=== PATIENT | female | born 1945 | race Caucasian/White ===

== ENCOUNTER 2017-01-29 08:41 | Inpatient (IN) ==
[2017-01-29] MEDS ORDERED: ACETAMINOPHEN 325 MG TABLET PO PRN (09:02)
--- NOTE | 2017-01-29 09:16 | Family Practice History&Phys ---
Assessment and Plan (1) Colon distention Status: Acute Assessment and plan: 01/29/2017: Patient be admitted to my services. GI and surgery will be consulted. (2) Pneumatosis coli Status: Acute Assessment and plan: 01/29/2017: IV antibiotics have been ordered. Surgery is consulted. History of Present Illness Chief complaint: Abdominal pain and bloating History of present illness: Ms. Varghese is a 71 year old female Patient is a 71-year-old white female presented my office on 01/28/2017 with persistent abdominal pain and bloating of months duration. Patient denied any blood or mucus in her stool. She has not been having any fever or chills. She is diffusely distended and I advised hospitalization for CT and GI consultation. She was reluctant come the hospital 1 to try to do as an outpatient. She has a CT of the abdomen today which revealed have a markedly dilated colon with small area of pneumatosis coli. There is also a narrowed area in her distal sigmoid concerning for a apple core lesion. Patient was admitted for further evaluation. She denies any fever or chills today as well. Home Medications Medication Instructions Recorded Confirmed Type Aspirin [Ecotrin] 81 mg PO DAILY 02/06/16 04/28/16 History Glimepiride [Amaryl] 4 mg PO BID 02/06/16 04/28/16 History Ibuprofen [Advil] 200 mg PO BEDTIME PRN 02/06/16 04/28/16 History Ibuprofen/Diphenhydramine HCl 1 capsule PO BEDTIME PRN 02/06/16 04/28/16 History [Advil PM Cap] [place]-3S/Dha/Epa/Fish Oil [Fish 1 each PO BID 02/06/16 04/28/16 History Oil 1,200 mg Softgel] Timolol Maleate [Timolol 0.5% Oph 1 drop BOTH EYES BID 02/06/16 04/28/16 History Soln] Valsartan [Diovan] 160 mg PO DAILY 02/06/16 04/28/16 History amLODIPine [Norvasc] 5 mg PO DAILY 02/06/16 04/28/16 History hydroCHLOROthiazide 25 mg PO DAILY PRN 02/06/16 04/28/16 History [Hydrochlorothiazide] metFORMIN [Glucophage] 1,000 mg PO BID W/MEALS 02/06/16 04/28/16 History Cyanocobalamin (Vitamin B-12) 1,000 mcg PO DAILY 04/28/16 04/28/16 History [Vitamin B-12] Allergies Allergy/AdvReac Type Severity Reaction Status Date / Time povidone-iodine Allergy Intermediate BLISTER Verified 03/22/16 06:17 [From Betadine] soap [From Betadine] Allergy Intermediate BLISTER Verified 03/22/16 06:17 - Constitutional Constitutional: Present: fatigue, weakness. Absent: chills, fever(s) - EENT Eyes: Absent: blurry vision, loss of vision Ears: Absent: decreased hearing, ear pain Nose, mouth and throat: Absent: hoarseness, nasal congestion, sinus pressure, sore throat - Cardiovascular Cardiovascular: Absent: chest pain at rest, dyspnea - Respiratory Respiratory: Absent: cough, dyspnea, dyspnea on exertion - Gastrointestinal Gastrointestinal: Present: abdominal pain, bloating, constipation, cramping. Absent: diarrhea, hematemesis, hematochezia, melena, nausea, vomiting - Genitourinary Genitourinary: Absent: difficulty urinating, dysuria, urinary frequency - Musculoskeletal Musculoskeletal: Absent: arthralgias, back pain - Neurological Neurological: Absent: confusion, focal weakness, numbness, paresthesias - Psychiatric Psychiatric: Absent: anxiety, confusion, depression - Endocrine Endocrine: Present: fatigue. 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 Scott) Endocrine: History of: Diabetes Mellitus (NIDDM) Respiratory: No history of: Pneumonia (No Pneum Vac), Respiratory Problems (Flu Vac Dec 2015) Genitourinary: History of: Bladder Problem (Leaky Bladder; Told in 1995 She had Prolapse Bladder) Gastrointestinal: History of: GERD Musculoskeletal: History of: Musculoskeletal Problems (Arthritis) Other: History of: Anesthesia Reactions (Nausea) No history of: Cancer - Surgical History HEENT Surgeries: Patient denies: Eye Surgery (02/07/[address] Dejesus; Sched for Rt ) Abdominal Surgeries: Surgical HX of: Appendectomy Patient denies: Colonoscopy Reproductive Surgeries: Surgical HX of;: Hysterectomy (Partial), Tubal Ligation (1972) Orthopedic Surgeries: Surgical HX of;: Orthopedic Surgery (CTR LT; TFR RT; CTR RT) - Family History Family History: noncontributory - Social History Smoking Status: Never smoker Exam - Constitutional Exam: General: Objective patient is a well-developed white female who is able give good history. HEENT: Pupils equal and reactive to light. Patent nares and airway Neck: No meningismus, adenopathy, thyromegaly. There are no auscultated carotid bruits. Cardiovascular: Regular rhythm. No murmurs or gallops Chest: Clear to auscultation without rales rhonchi wheezes. Abdomen: Patient found to have diffuse abdominal distention. She has diffuse direct tenderness scattered across her entire abdomen. Bowel sounds were appreciated. She did have tympany to percussion. There is no palpable hepatosplenomegaly, masses or aortic enlargement. Neuro: Cranial nerves intact and DTRs and strength symmetric in all extremities. Dermatologic: No evidence of abnormal lesions or masses. Musculoskeletal: There is no joint swelling or tenderness or deformity. Extremities: There is no calf swelling or tenderness. Results - Diagnostic Findings Procedure: CT Abdomen and Pelvis: report reviewed by me (CT reveals diffuse colonic distention with some pneumatosis coli.)
[2017-01-29] MEDS ORDERED: ENOXAPARIN 40 MG/0.4 ML SYRINGE SUBCUT SCH (09:30)
[2017-01-29] MEDS ORDERED: INFLUENZA VIRUS VACCINE 0.5 ML SYRINGE IM ONE (10:09)
--- NOTE | 2017-01-29 10:16 | XRay Report ---
History is preop respiratory screening The heart is normal in size Small left upper lobe granuloma again seen. No congestive failure or confluent infiltrates seen. Impression: No acute pathology seen PROCEDURE INTERPRETED AT [facility] DEPARTMENT OF RADIOLOGY Final Report Signed by: Dr. Tiffany Banerjee
--- NOTE | 2017-01-29 10:36 | Order Completion Report ---
See report scanned to EMR
--- NOTE | 2017-01-29 10:47 | Gastrointestinal Consult Note ---
<Anabell Oleary - Last Filed: 01/29/17 10:39> Assessment and Plan (1) Abdominal pain Status: Acute Assessment and plan: 01/29-several month history of random episodes of abdominal pain with associated bloating and nausea with history of constipation. 2 week history of worsening pain more chronic in nature. No overt bleeding. Afebrile. No prior endoscopy in the past. CT of abdomen findings this morning noted as below. Consideration for colonoscopy to further evaluate. Plan an addendum to followed by Dr. Mai. Current Visit: Yes History of Present Illness Chief complaint: Abdominal pain History of present illness: Ms. Varghese is a 71 year old female who was a direct admit to the hospital from Dr. Villalpando office today. Patient has a prior history of hypertension, diabetes mellitus, GERD, and OA. Patient states that several months ago she began having some abdominal distention and discomfort. She states that the pain was very random in nature however seem to mostly be precipitated by eating and meals. Patient states that she did have some generalized abdominal pain and cramping with associated nausea. She cannot recall anything that improves the pain when it would occur. Patient states that this continued to occur until approximately 2 weeks ago when the pain became more severe. She states the pain is now more consistent in nature, at times moves around her abdomen to different areas, and continues to be associated with nausea without any vomiting. She denies any changes in her bowels with no melena or hematochezia however states that she does have chronic constipation issues. She denies any associated weight loss, fever or chills. She denies any upper GI symptoms including dysphagia, dyspepsia, however states that she has noticed a change in her GERD as of lately. She does take an occasional Advil at night for pain. She has never had upper or lower endoscopy in the past. Patient was seen in the clinic this morning, she had a CT of the abdomen with contrast ordered. Findings were negative for significant colon distention with fecal material and wall thickening and minimal pneumatosis coli with minimal ascites. Also made to transition zone in the sigmoid colon. 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 No labs are available at this time. Home Medications Medication Instructions Recorded Confirmed Type Aspirin [Ecotrin] 81 mg PO DAILY 02/06/16 04/28/16 History Glimepiride [Amaryl] 4 mg PO BID 02/06/16 04/28/16 History Ibuprofen [Advil] 200 mg PO BEDTIME PRN 02/06/16 04/28/16 History Ibuprofen/Diphenhydramine HCl 1 capsule PO BEDTIME PRN 02/06/16 04/28/16 History [Advil PM Cap] [place]-3S/Dha/Epa/Fish Oil [Fish 1 each PO BID 02/06/16 04/28/16 History Oil 1,200 mg Softgel] Timolol Maleate [Timolol 0.5% Oph 1 drop BOTH EYES BID 02/06/16 04/28/16 History Soln] Valsartan [Diovan] 160 mg PO DAILY 02/06/16 04/28/16 History amLODIPine [Norvasc] 5 mg PO DAILY 02/06/16 04/28/16 History hydroCHLOROthiazide 25 mg PO DAILY PRN 02/06/16 04/28/16 History [Hydrochlorothiazide] metFORMIN [Glucophage] 1,000 mg PO BID W/MEALS 02/06/16 04/28/16 History Cyanocobalamin (Vitamin B-12) 1,000 mcg PO DAILY 04/28/16 04/28/16 History [Vitamin B-12] Allergies Allergy/AdvReac Type Severity Reaction Status Date / Time povidone-iodine Allergy Intermediate BLISTER Verified 03/22/16 06:17 [From Betadine] soap [From Betadine] Allergy Intermediate BLISTER Verified 03/22/16 06:17 Medical,Surgical,& Family Hx - Medical History Cardio: History of: Hypertension Neurology: No history of: Seizures HEENT: History of: 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 Scott) Endocrine: History of: Diabetes Mellitus (NIDDM) Respiratory: No history of: Pneumonia (No Pneum Vac), Respiratory Problems (Flu Vac Dec 2015) Genitourinary: History of: Bladder Problem (Leaky Bladder; Told in 1995 She had Prolapse Bladder) Gastrointestinal: History of: GERD Musculoskeletal: History of: Musculoskeletal Problems (Arthritis) Other: History of: Anesthesia Reactions (Nausea) No history of: Cancer - Surgical History HEENT Surgeries: Patient denies: Eye Surgery (10/18/[address] Dejesus; Sched for Rt ) Abdominal Surgeries: Surgical HX of: Appendectomy Patient denies: Colonoscopy Reproductive Surgeries: Surgical HX of;: Hysterectomy (Partial), Tubal Ligation (1972) Orthopedic Surgeries: Surgical HX of;: Orthopedic Surgery (CTR LT; TFR RT; CTR RT) - Social History Smoking Status: Never smoker Frequency of Alcohol Use: None Type of Drug Use: None 12 point system: reviewed and no additional remarkable complaints except as stated - Constitutional Constitutional: Present: as per HPI - EENT Eyes: Present: as per HPI Ears: Present: as per HPI Nose, mouth and throat: Present: as per HPI - Cardiovascular Cardiovascular: Present: as per HPI - Respiratory Respiratory: Present: as per HPI - Gastrointestinal Gastrointestinal: Present: as per HPI, abdominal pain, bloating, constipation, heartburn, nausea - Genitourinary Genitourinary: Present: as per HPI - Musculoskeletal Musculoskeletal: Present: as per HPI - Neurological Neurological: Present: as per HPI - Psychiatric Psychiatric: Present: as per HPI - Endocrine Endocrine: Present: as per HPI - Hematologic/Lymphatic Hematologic/Lymphatic: Present: as per HPI Exam - Constitutional Vitals: Period Temp Pulse Resp BP Sys/Cabrales Pulse Ox Last 24 Hr 97.3 F 80 16 156/74 96 General appearance: normal weight, no acute distress - Head Head exam: Present: normal inspection, normocephalic - Eye Eye exam: Present: other (Lids and conjunctivae are unremarkable). Absent: scleral icterus - ENT ENT exam: Present: normal exam, normal oropharynx - Neck Neck exam: Present: normal inspection - Respiratory Respiratory exam: Present: clear to auscultation bilaterally. Absent: rales, rhonchi, wheezes - Cardiovascular Cardiovascular exam: Present: regular rate and rhythm. Absent: diastolic murmur , JVD, systolic murmur - GI/Abdominal GI/Abdominal exam: Present: normal bowel sounds, soft. Absent: ascites, distended, mass, organomegaly, tenderness - Extremities Exam Extremities exam: Present: normal inspection, full ROM - Back Exam Back exam: Present: normal inspection - Neurological Exam Neurological exam: Present: alert, oriented X3 - Psychiatric Psychiatric exam: Present: normal affect, normal mood - Skin Skin exam: Present: normal color, warm, dry Results - Diagnostic Findings Procedure: CT Abdomen and Pelvis: report reviewed by me Quality Measures - Stroke Symptom Onset Unknown: No <Harjinder Mai - Last Filed: 01/29/17 12:54> History of Present Illness History of present illness: Ms. Varghese is a 71 year old female Exam - Constitutional Vitals: Period Temp Pulse Resp BP Sys/Cabrales Pulse Ox Last 24 Hr 97.3 F 80 16 156/74 96 Results - Labs CBC & BMP: 01/29/17 10:53 01/29/17 10:49
[2017-01-29 11:17] LABS: Basophils % 0.3 % (0.0-0.8); Eosinophils % 0.1 % (0.00-10.9); Hematocrit 35.6 VOL% (35.7-47.0); Hemoglobin 12.1 GM/DL (12.0-16.0); Immature Granulocytes % 0.5 %; Immature Granulocytes Absolute 0.06 #; Lymphocytes # 1.5 10*3/uL (1.4-4.0); Lymphocytes % 12.2 % (21.3-54.2); Mean Corpuscular Hemoglobin 28 PG (27-34); Mean Corpuscular Volume 83.4 FL (87-102); Mean Platelet Volume 10.5 FL (9.6-12.0); Monocytes # 0.4 10*3/uL (0.11-0.8); Monocytes % 3.2 % (1.7-12.7); Neutrophils # 10.3 10*3/uL (1.4-7.4); Neutrophils % 83.7 % (38.7-73.9); Platelet Count 536 T/CUMM (130-400); Red Blood Count 4.27 MC/CUMM (3.8-5.5); White Blood Count 12.3 T/CUMM (4-12)
[2017-01-29 11:42] LABS: Alanine Aminotransferase 14 U/L (13-56); Albumin 3.2 G/DL (3.4-5.0); Alkaline Phosphatase 150 U/L (45-117); Aspartate Amino Transferase 10 U/L (0-37); Bilirubin,Total < 0.39 MG/DL (0.2-1.0); Blood Urea Nitrogen 19 MG/DL (7-18); Calcium 9.5 MG/DL (8.5-10.1); Glucose 308 MG/DL (74-106); Osmolality,Calculated 281.2 MOS/KG (273-304); Potassium 3.8 MMOL/L (3.5-5.1); Sodium 134 MMOL/L (136-145); Total Protein 7.2 G/DL (6.4-8.3)
--- NOTE | 2017-01-29 11:51 | General Surgery Consult Note ---
Assessment and Plan (1) Colon distention Status: Acute Assessment and plan: Patient is colonic distention with transition point noted in the sigmoid; certainly a neoplasm is of concern while other diagnoses are possible including adhesions or infectious process. She has no evidence of peritonitis or need for emergent surgical intervention. At this point, the case has been reviewed by Drs. Mai and Alfredo who discussed possible therapeutic colonoscopy with attempt of stent placement to decompress the colon which may also provide additional diagnostic information. If this is not successful, surgical intervention may be required today or in the next 24-48 hours pending the patient's clinical picture. We will continue to follow. Current Visit: Yes History of Present Illness Chief complaint: abdominal pain/distension History of present illness: Ms. Varghese is a 71 year old female with past medical history of hypertension and diabetes mellitus who is currently admitted with colonic distention. The patient reports a several month history of generalized abdominal pain and distention, worse when she needs to pass flatus or bowel movement. This has progressed over time and increased significantly in the past 2 weeks. She does note a change in the caliber of her stool with softer stools and pencil-like stools; denies melena or hematochezia. She reports change in her diet due to fear of eating causing worsening of her abdominal pain with slight weight loss, but no anorexia, fever, chills or riders. She had a hysterectomy with appendectomy simultaneously and several years ago without complication; she reports history of intermittent constipation and denies history of diverticulitis or inflammatory bowel disease. No family history of cancers. Home Medications Medication Instructions Recorded Confirmed Type Aspirin [Ecotrin] 81 mg PO DAILY 02/06/16 04/28/16 History Glimepiride [Amaryl] 4 mg PO BID 02/06/16 04/28/16 History Ibuprofen [Advil] 200 mg PO BEDTIME PRN 02/06/16 04/28/16 History Ibuprofen/Diphenhydramine HCl 1 capsule PO BEDTIME PRN 02/06/16 04/28/16 History [Advil PM Cap] [place]-3S/Dha/Epa/Fish Oil [Fish 1 each PO BID 02/06/16 04/28/16 History Oil 1,200 mg Softgel] Timolol Maleate [Timolol 0.5% Oph 1 drop BOTH EYES BID 02/06/16 04/28/16 History Soln] Valsartan [Diovan] 160 mg PO DAILY 02/06/16 04/28/16 History amLODIPine [Norvasc] 5 mg PO DAILY 02/06/16 04/28/16 History hydroCHLOROthiazide 25 mg PO DAILY PRN 02/06/16 04/28/16 History [Hydrochlorothiazide] metFORMIN [Glucophage] 1,000 mg PO BID W/MEALS 02/06/16 04/28/16 History Cyanocobalamin (Vitamin B-12) 1,000 mcg PO DAILY 04/28/16 04/28/16 History [Vitamin B-12] Allergies Allergy/AdvReac Type Severity Reaction Status Date / Time povidone-iodine Allergy Intermediate BLISTER Verified 03/22/16 06:17 [From Betadine] soap [From Betadine] Allergy Intermediate BLISTER Verified 03/22/16 06:17 Medical,Surgical,& Family Hx - Medical History Cardio: History of: Hypertension Neurology: No history of: Seizures HEENT: History of: 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 Scott) Endocrine: History of: Diabetes Mellitus (NIDDM) Respiratory: No history of: Pneumonia (No Pneum Vac), Respiratory Problems (Flu Vac Dec 2015) Genitourinary: History of: Bladder Problem (Leaky Bladder; Told in 1995 She had Prolapse Bladder) Gastrointestinal: History of: GERD Musculoskeletal: History of: Musculoskeletal Problems (Arthritis) Other: History of: Anesthesia Reactions (Nausea) No history of: Cancer - Surgical History HEENT Surgeries: Patient denies: Eye Surgery (02/07/[address] Dejesus; Sched for Rt ) Abdominal Surgeries: Surgical HX of: Appendectomy Patient denies: Colonoscopy Reproductive Surgeries: Surgical HX of;: Hysterectomy (Partial), Tubal Ligation (1971) Orthopedic Surgeries: Surgical HX of;: Orthopedic Surgery (CTR LT; TFR RT; CTR RT) - Social History Smoking Status: Never smoker Frequency of Alcohol Use: None Type of Drug Use: None - Constitutional Constitutional: Present: as per HPI - Cardiovascular Cardiovascular: Present: palpitations (Currently; she has had evaluation in the past with identification of PVCs). Absent: chest pain at rest, dyspnea - Respiratory Respiratory: Absent: cough, wheezing - Gastrointestinal Gastrointestinal: Present: as per HPI - Genitourinary Genitourinary: Absent: dysuria, flank pain, urinary frequency - Neurological Neurological: Absent: abnormal speech, behavioral changes, dizziness, focal weakness, headache(s), memory loss Hematologic/Lymphatic: Absent: easy bleeding, easy bruising Exam - Constitutional Vitals: Period Temp Pulse Resp BP Sys/Cabrales Pulse Ox Last 24 Hr 97.3 F 80 16 156/74 96 General appearance: no acute distress - Eye Eye exam: Absent: scleral icterus - Respiratory Respiratory exam: Present: clear to auscultation bilaterally - Cardiovascular Cardiovascular exam: Present: other (Regular rate; irregular rhythm -regular rhythm with intermittent drop to be) - GI/Abdominal GI/Abdominal exam: Present: distended (Mild to moderate), hypoactive bowel sounds, soft, other (Tympanic to percussion). Absent: firm, guarding, tenderness, rebound - Extremities Exam Extremities exam: Absent: calf tenderness, edema - Neurological Exam Neurological exam: Present: alert, oriented X3 Speech: Present: normal - Skin Skin exam: Present: normal color, warm Quality Measures - Stroke Symptom Onset Unknown: No Results - Labs CBC & BMP: 01/29/17 10:53 01/29/17 10:49 Lab Results: I have reviewed the past 24 hour labs - EKG EKG shows: sinus rhythm (With PACs) - Diagnostic Findings Procedure: Chest x-ray: image reviewed by me, report reviewed by me, CT Abdomen and Pelvis: image reviewed by me, report reviewed by me (Independently reviewed ; descending colon noted with transition point in the sigmoid; minimal stool noted beyond)
[2017-01-29] MEDS: DOCUSATE SODIUM 100 MG CAPSULE PO SCH (12:28)
[2017-01-29] MEDS: SODIUM CHLORIDE 0.9% 1,000 ML IV SCH (12:28)
[2017-01-29] MEDS: LEVOFLOXACIN INJ 500 MG in PREMIX 1 EACH IV SCH (12:29)
[2017-01-29] MEDS: ONDANSETRON 4 MG/2 ML VIAL IV PRN (12:40)
[2017-01-29] MEDS: MORPHINE 2 MG/1 ML SYRINGE IV PRN ×2 (12:43→16:56)
[2017-01-29] MEDS ORDERED: PROPOFOL 200 MG/20 ML VIAL IV ONE ×2 (13:00→20:16)
[2017-01-29] MEDS ORDERED: PHENYLEPHRINE 1 MG/10 ML SYRINGE IV ONE ×2 (13:00→20:16)
[2017-01-29] MEDS ORDERED: LIDOCAINE 2% 5 ML VIAL ONE ×2 (13:00→20:16)
--- NOTE | 2017-01-29 13:26 | History and Physical Update ---
History and Physical Update - History and Physical H&P was reviewed, the patient examined and there: are no changes in the patients condition since last H&P was completed. - Physical Exam Mental Status: alert and oriented Heart: regular rate and rhythm Lung: clear to auscultation Abdomen: other (Distended, moderate tenderness) Vitals: within normal limits
--- NOTE | 2017-01-29 13:33 | Operative Note ---
Date of procedure: 01/29/17 Pre-op diagnosis: Sigmoid colon obstruction Procedure: Procedure: Flexible sigmoidoscopy Brief clinical abstract: Patient is a 71-year-old female who has had several week history of increasing constipation, lower abdominal pain and abdominal distention. On CT she has transition point in her proximal sigmoid colon with obstructive change and moderate dilation of her colon proximal to this. I have discussed with Dr. Fuentes of surgery about evaluating this endoscopically and if malignant, would plan colonic stent for relief of obstruction to allow 1 stage surgical treatment. Risks and benefits including potential colon perforation were discussed and she agrees to proceed. Procedure findings: After informed consent was obtained, patient was placed in the left lateral decubitus position. Digital rectal exam was performed with no palpable abnormalities felt. Adult videocolonoscope using CO2 insufflation was inserted in the rectum and advanced to the proximal sigmoid colon. There was some moderate amount of stool in the left colon which we were able to wash away with water through the endoscope. There was quite a bit of edema at this level which I could not pass through the colonoscope. Some diverticulosis was noted in the sigmoid colon. No mass or polyp tissue was seen. To allow further exam of this area, colonoscope was withdrawn and gastroscope advanced to this level. I was able to pass 2-3 cm proximal to this through the narrowed area and, again, only edematous changes were noted in mucosa in this area with no mass seen. I elected to withdraw the endoscope at this point. No other lesions were noted distal to this. We deflated air from her colon as much as possible and her abdomen was soft and mildly distended at the end of the procedure. Impression: #1 obstruction at proximal sigmoid colon-with large amount of edema in this area suggesting inflammatory process as etiology, diverticulitis suspected. #2 sigmoid diverticulosis Recommendations: Plan to discuss with Dr. Fuentes of surgery. She will probably require diverting colostomy for relief of obstruction. Anesthesia: other (tiva) Surgeon / Physician: Harjinder Mai Estimated blood loss: none Specimens: none sent Condition: stable Disposition: post procedure unit Results - Labs CBC & BMP: 01/29/17 10:53 01/29/17 10:49 Discharge Plan - Discharge Medications No Action metFORMIN [Glucophage] 1,000 mg PO BID W/MEALS Ibuprofen/Diphenhydramine HCl [Advil PM Cap] 1 capsule PO BEDTIME PRN PRN Reason: Insomnia Ibuprofen [Advil] 200 mg PO BEDTIME PRN PRN Reason: Pain hydroCHLOROthiazide [Hydrochlorothiazide] 25 mg PO DAILY PRN PRN Reason: Edema [place]-3S/Dha/Epa/Fish Oil [Fish Oil 1,200 mg Softgel] 1 each PO BID Aspirin [Ecotrin] 81 mg PO DAILY Timolol Maleate [Timolol 0.5% Oph Soln] 1 drop BOTH EYES BID amLODIPine [Norvasc] 5 mg PO DAILY Valsartan [Diovan] 160 mg PO DAILY Glimepiride [Amaryl] 4 mg PO BID Cyanocobalamin (Vitamin B-12) [Vitamin B-12] 1,000 mcg PO DAILY - Follow Up or Referral - Forms/Instructions
--- NOTE | 2017-01-29 13:33 | Anesthesia Post-Op ---
Anesthesia Post OP - Post Ansesthetic Evaluation Patient seen in post op: Yes Resp: within normal limits CV: within normal limits Mental: within normal limits Temp: within normal limits [id number]: within normal limits Nausea and Vomiting: within normal limits Pain: within normal limits
[2017-01-29] MEDS: metroNIDAZOLE INJ 500 MG in PREMIX 1 EACH IV SCH (15:08)
[2017-01-29] MEDS ORDERED: GLUCAGON 1 MG VIAL IM PRN (16:19)
[2017-01-29] MEDS ORDERED: DEXTROSE 50% 25 GM/50 ML VIAL IV PRN (16:19)
[2017-01-29] MEDS: INSULIN LISPRO 100 UNIT/ML SUBCUT SCH ×2 (16:55→19:02)
--- NOTE | 2017-01-29 17:28 | Event Note ---
This patient had a colonoscopy showing edema the area of the sigmoid colon stricture which did not appear malignant. This was unable to be traversed with colonoscope. The patient has had worsening pain since then and given her pneumatosis on CT, elevated white count, and abdominal pain I feel that the safest thing to do to proceed with operation tonight to avoid a perforation of her cecum or gangrene of her cecum. I recommended laparotomy with sigmoid colon resection and diverting colostomy and colostomy. I discussed the risks, benefits, and alternatives of the operation with the patient and her family, and the expected outcomes have been reviewed. They would like to proceed with the operation.
[2017-01-29] MEDS ORDERED: FAMOTIDINE 20 MG TABLET PO ONE (18:59)
[2017-01-29] MEDS ORDERED: LORazepam 1 MG TABLET PO ONE (18:59)
[2017-01-29] MEDS ORDERED: SUCCINYLCHOLINE 200 MG/10 ML VIAL ONE (20:16)
[2017-01-29] MEDS ORDERED: ROCURONIUM 100 MG/10 ML VIAL IV ONE (20:16)
[2017-01-29] MEDS ORDERED: ONDANSETRON 4 MG/2 ML VIAL ONE (20:16)
[2017-01-29] MEDS ORDERED: ALBUMIN 5% 12.5 GM/250 ML VIAL IV ONE (20:35)
[2017-01-29 21:15] LABS: Apearance,Urine CLEAR (Clear); Bilirubin,Urine Negative (Negative); Blood, Urine Negative (Negative); Glucose,Urine (UA) >=500 mg/dL (Negative); Hyaline Casts,Urine 2 /LPF (0-3); Ketones,Urine 20 mg/dL (Negative); Mucus,Urine Occasional /LPF (Occasional); Nitrite,Urine Negative (Negative); Protein,Urine Negative; RBC,Urine <1 /HPF (0-4); Squamous Epithelial Cell,Urine Occasional /HPF (0-10); Urine Color Yellow (Yellow); Urine Specific Gravity 1.022 (1.001-1.035); Urine Urobilinogen < 2.0 EU/DL (0.2-1.0); WBC,Urine 1 /HPF (0-6)
[2017-01-29] MEDS ORDERED: MICROFIBRILLAR COLLAGEN POWDER 1 GM CAN TOP ONE (22:04)
--- NOTE | 2017-01-29 23:15 | Operative Note ---
Date of procedure: 01/29/17 Pre-op diagnosis: Sigmoid colon obstruction Post-op diagnosis: same Procedure: Preoperative diagnosis Sigmoid colon obstruction with liver lesions Postoperative diagnosis Same Procedures performed 1. Exploratory laparotomy 2. Left lateral segment liver biopsy 3. End sigmoid colostomy with distal sigmoid colon mucous fistula 4. Excision of mesenteric lymph node 22 modifier Findings This operation was extremely difficult took more than twice usual length of time due to massive distention of the colon and adhesions in the pelvis. There was a lesion in the left lateral segment of the liver that appeared to be a metastatic focus of colon cancer. A biopsy was taken and sent to pathology. In addition, there is a very firm mass in the mesentery that appeared to be a mesenteric lymph node and this was excised individually and sent to pathology as a separate specimen. The pelvic dissection was prohibitively dangerous due to adhesion to the left pelvic sidewall with bleeding and what appeared to be a T4 tumor that extended into the pelvic sidewall and possibly even the bladder. This in combination with the consideration of metastatic disease was prohibitively risky to continue for a resection and a colostomy was performed with the distal mucous fistula. A 22 modifier was added to this case due to the massive distention of the colon and the difficulty with dissection around the pelvis making this take more than twice usual length of time. The left ureter was seen and preserved. Complications None apparent Specimen 1. Left lateral segment liver biopsy 2. Mesenteric lymph node Blood loss 150 mL Anesthesia GETA Indications Sigmoid colon obstruction with liver lesions and cecal pneumatosis with abdominal pain Description of procedure The patient was taken to the operating room and transferred to the operating table in the supine position. Pressure points were padded and SCDs were placed lower extremities. General endotracheal anesthesia was administered. The abdomen was prepped chlorhexidine and draped sterilely. Preoperative antibiotics were administered, and a timeout performed. The midline abdominal incision was made with a 10 blade scalpel. Electrocautery was used to dissected the subcutaneous tissues and the abdomen was entered under direct visualization. There was a large amount of very distended transverse colon came out just underneath the incision. This had no evidence of ischemia. Exploratory laparotomy was then performed with Bookwalter retractor used for exposure. The pelvis was palpated there is a firm mass in the pelvis. A lateral to medial dissection was attempted in the pelvis in order to remove this obstructing lesion in the distal sigmoid colon. The colon was massively distended and initially my plan is to resect this area and do an colostomy so the colon was divided at the planned ostomy site to assist with dissection in the pelvis. This did help with exposure but it became evident that there was concerns about the safety of a pelvic dissection in this situation with pretty diffuse bleeding with any attempts at dissection and a mesenteric lymph node was seen at the area of transection of the colon that was concerning for more of metastatic malignant picture. At this time I went back and palpated the liver and there was a nodule in the left lateral segment of the liver that felt firm and malignant appearing. This was visualized and also was whitish and had a malignant appearance to it such as the colon metastatic focus of cancer. A biopsy of this liver lesion was performed and sent to pathology. Hemostasis was achieved with direct pressure, Avitene, and Tisseel. Attention was then turned back to the pelvis. Because of how dangerous this dissection seem to be because of the colon being adherent to the left pelvic sidewall and possibly the bladder as well in the bleeding that occurred any time I tried any dissection down there I felt like this was too risky of a dissection especially in the setting of metastatic disease but even in benign disease a Galvan could be beneficial to divert the patient's fecal stream with an ostomy and allow this area to cool down. For this reason, I transitioned my plan to a end colostomy with a distal mucous fistula. The colon was mobilized along the white line of Toldt laterally. A muscogee of skin was removed and a trans-rectus incision was made in the abdominal wall fascia and the muscle was parted with blunt dissection but not divided. The sigmoid colon was brought out through this opening and an ostomy was matured. The contents of the colon were milked out to assist with decompression of the cecum there was pneumatosis preoperatively. This allowed adequate decompression of the colon. The ostomy was matured with 3-0 Vicryl sutures. A separate area was then prepared for mucous fistula placement. This was done in the left lower abdominal wall through a separate muscogee of skin it was removed. A trans-rectus approach was performed and the distal sigmoid colon was tubularized to allow it to reach out into the skin level for a mucous fistula. The AGAPITO stapler was used to make a tube of sigmoid colon that easily reached out to the scan and this was matured with 3-0 Vicryl sutures. The TAMY drains were then placed through separate stab incisions the right lower quadrant and placed in the pelvis and in the area of the mesenteric dissection on the left side. The left ureter had been visualized during this dissection as well. The midline incision was then irrigated copiously and closed with #1 non-looped PDS sutures. The skin incision was left open and packed with a wet-to-dry dressing. The patient was awakened from anesthesia and transferred to recovery. A 22 modifier was added to this case due to the above-mentioned reasons and the massive distention of the colon this case take more than twice usual length of time. Postoperative plan Follow-up pathology Anesthesia: SUMA Surgeon / Physician: Nilay Fuentes Estimated blood loss: other (150 mL) Specimens: other (1. liver biopsy 2. mesenteric lymph node biopsy) Condition: stable Disposition: PACU Results - Labs CBC & BMP: 01/29/17 10:53 01/29/17 10:49 Discharge Plan - Discharge Medications No Action metFORMIN [Glucophage] 1,000 mg PO BID W/MEALS Ibuprofen/Diphenhydramine HCl [Advil PM Cap] 1 capsule PO BEDTIME PRN PRN Reason: Insomnia Ibuprofen [Advil] 200 mg PO BEDTIME PRN PRN Reason: Pain hydroCHLOROthiazide [Hydrochlorothiazide] 25 mg PO DAILY PRN PRN Reason: Edema Liscomb-3S/Dha/Epa/Fish Oil [Fish Oil 1,200 mg Softgel] 1 each PO BID Aspirin [Ecotrin] 81 mg PO DAILY Timolol Maleate [Timolol 0.5% Oph Soln] 1 drop BOTH EYES BID amLODIPine [Norvasc] 5 mg PO DAILY Valsartan [Diovan] 160 mg PO DAILY Glimepiride [Amaryl] 4 mg PO BID Cyanocobalamin (Vitamin B-12) [Vitamin B-12] 1,000 mcg PO DAILY - Follow Up or Referral - Forms/Instructions
--- NOTE | 2017-01-29 23:33 | Anesthesia Post-Op ---
Anesthesia Post OP - Post Ansesthetic Evaluation Patient seen in post op: Yes Resp: within normal limits CV: within normal limits Mental: within normal limits Temp: within normal limits [id number]: within normal limits Nausea and Vomiting: within normal limits Pain: within normal limits
[2017-01-29] MEDS ORDERED: fentaNYL 100 MCG/2 ML VIAL ONE (23:37)
[2017-01-29] MEDS ORDERED: HYDROmorphone 2 MG/1 ML VIAL ONE (23:37)
[2017-01-29] MEDS ORDERED: NALOXONE 0.4 MG/ML VIAL IV PRN (23:49)
[2017-01-30] MEDS: HYDROmorphone PCA 30 MG/30 ML SYRINGE IV SCH (00:45)
[2017-01-30] MEDS: DOCUSATE SODIUM 100 MG CAPSULE PO SCH ×3 (01:57→21:14)
[2017-01-30] MEDS: metroNIDAZOLE INJ 500 MG in PREMIX 1 EACH IV SCH ×4 (01:57→21:13)
[2017-01-30] MEDS: SODIUM CHLORIDE 0.9% 1,000 ML IV SCH ×3 (03:19→14:37)
[2017-01-30 06:06] LABS: Basophils % 0.2 % (0.0-0.8); Hematocrit 30.8 VOL% (35.7-47.0); Hemoglobin 10.3 GM/DL (12.0-16.0); Immature Granulocytes % 0.3 %; Immature Granulocytes Absolute 0.02 #; Lymphocytes # 0.9 10*3/uL (1.4-4.0); Mean Corpuscular HGB Conc 33.4 GM/DL (32-36); Mean Corpuscular Hemoglobin 29 PG (27-34); Mean Corpuscular Volume 85.1 FL (87-102); Mean Platelet Volume 10.7 FL (9.6-12.0); Monocytes # 0.5 10*3/uL (0.11-0.8); Monocytes % 8.8 % (1.7-12.7); Neutrophils # 4.5 10*3/uL (1.4-7.4); Neutrophils % 75.7 % (38.7-73.9); Platelet Count 434 T/CUMM (130-400); Red Blood Count 3.62 MC/CUMM (3.8-5.5); Red Cell Distribution Width 13.2 % (9.3-17.3)
[2017-01-30 06:28] LABS: Band Neutrophils 11 % (0-10); Hypochromasia Slight; Lymphocytes 19 % (20-55); Platelet Estimate Adequate; Segmented Neutrophils 62 % (50-85); Total Cells Counted 100
[2017-01-30 06:29] LABS: Burr Cells Slight; Giant Platelets Few
[2017-01-30 06:44] LABS: Calcium 7.8 MG/DL (8.5-10.1); Osmolality,Calculated 289.3 MOS/KG (273-304); Potassium 4.2 MMOL/L (3.5-5.1)
[2017-01-30] MEDS: ONDANSETRON 4 MG/2 ML VIAL IV PRN ×2 (07:09→14:44)
--- NOTE | 2017-01-30 07:25 | Event Note ---
General Surgery Progress Note Chief complaint This patient is a 71-year-old woman admitted with sigmoid colon obstruction treated with exploratory laparotomy with liver biopsy and mesenteric lymph node biopsy as well as end colostomy with mucous fistula on 01/29/2017 Interval history No events overnight. Hemoglobin is down to 10 g/dL from 12 preop. Creatinine is normal today. Labs are otherwise unremarkable and white blood cell count is normalized. TAMY drains are serosanguineous but moderate output. Minimal output from the colostomy with mucous fistula. Pain is well controlled overall but SOLE CONDITIONER wears off quickly. Pathology is pending. Urine output is adequate. Physical exam The patient is afebrile with normal vital signs The patient looks a little pale to me Chest is clear bilaterally Heart is regular with no murmurs Abdomen is soft and appropriately tender. Dressings are clean and dry. TAMY drains are serosanguineous. The ostomy is pink and patent. The mucous fistula is a little bit purplish and discolored. Extremities no edema Labs Reviewed, as above Imaging None new Assessment and plan Clear liquid diet or at least sips of clears Will start Lovenox DVT chemoprophylaxis and Toradol if hemoglobin is stable at noon Continue IV fluids and pain control Encourage oral narcotic pain medication with longer effect Repeat labs tomorrow repeat hemoglobin and
--- NOTE | 2017-01-30 07:35 | Family Practice Progress Note ---
Family Practice - PN: Subj Interval history: Patient is now postop colostomy. Patient had a large liver lesion as well as a mesenteric node. Dr. Fuentes was unable to resect the colon mass due to extensive adhesions. Patient states she slept very poorly. Her hemoglobin was down to 10.3. Her renal function is normal. Exam (Progress Note) - Constitutional Vitals: Period Temp Pulse Resp BP Sys/Cabrales Pulse Ox Last 24 Hr 97.3 F-100.2 F 64-89 16-24 113-171/62-080 95-100 Exam: Objective well-developed white female who is awake and alert. Her sensorium is intact. Cardiovascular: Heart rates regular without murmurs or gallops. Respiratory: The lungs clear to auscultation bilaterally. Abdomen: Abdomen is silent with diffuse tenderness as expected. Results - Labs CBC & BMP: 01/30/17 05:14 01/30/17 05:14 Lab Results: I have reviewed the past 24 hour labs Assessment and Plan (1) Colon distention Status: Acute Assessment and plan: 01/29/2017: Patient be admitted to my services. GI and surgery will be consulted. 01/30/2017: Patient is postop diverting colostomy. Biopsies are pending. It certainly appears to be colon cancer. Current Visit: Yes (2) Pneumatosis coli Status: Acute Assessment and plan: 01/29/2017: IV antibiotics have been ordered. Surgery is consulted. 01/30/2017. Patient's postop diverting colostomy. Current Visit: Yes Quality Measures - Stroke Symptom Onset Unknown: No
[2017-01-30] MEDS: PANTOPRAZOLE 40 MG VIAL IV SCH (08:58)
[2017-01-30] MEDS: INSULIN LISPRO 100 UNIT/ML SUBCUT SCH ×4 (08:59→21:13)
[2017-01-30] MEDS: LEVOFLOXACIN INJ 500 MG in PREMIX 1 EACH IV SCH (09:00)
--- NOTE | 2017-01-30 10:06 | Gastrointestinal Progress Note ---
Assessment and Plan (1) Abdominal pain Status: Acute Assessment and plan: 01/30-Post op day 2 exp lap with sigmoid colostomy and pending liver/lymph node biopsy. Expected post op abd pain. To have clear liquids initiated today. Plan and addendum to follow by Dr Mai. 01/29-several month history of random episodes of abdominal pain with associated bloating and nausea with history of constipation. 2 week history of worsening pain more chronic in nature. No overt bleeding. Afebrile. No prior endoscopy in the past. CT of abdomen findings this morning noted as below. Consideration for colonoscopy to further evaluate. Plan an addendum to followed by Dr. Mai. Current Visit: Yes Gastroenterology - PN: Subj Interval history: CC: Sigmoid colon obstruction Pt is seen, fairly groggy, with family at bedside. She is complaining of pain however HAY FARMER pump at bedside in which she is dependent on family to use for her when needed. Surgical findings of yesterday noted with liver and lymph node biopsy reports pending this morning. She has had a small amount of output from her colostomy as well as moderate TAMY drainage. She is to have clear liquid diet started today. Abdomen is soft, tender to palpation. Hemoglobin down from 12 to 10 following surgery with no overt bleeding. ROS: Denies SOB or chest pain Exam (Progress Note) - Constitutional Vitals: Period Temp Pulse Resp BP Sys/Cabrales Pulse Ox Last 24 Hr 95.0 F-100.2 F 64-89 16-24 105-171/57-080 95-100 General appearance: normal weight, no acute distress - Head Head exam: Present: normal inspection, normocephalic - Eye Eye exam: Present: other (lids and conjunctiva unremarkable). Absent: scleral icterus - ENT ENT exam: Present: normal exam, normal oropharynx - Neck Neck exam: Present: normal inspection - Respiratory Respiratory exam: Present: clear to auscultation bilaterally. Absent: rales, rhonchi, wheezes - Cardiovascular Cardiovascular exam: Present: regular rate and rhythm. Absent: diastolic murmur , JVD, systolic murmur - GI/Abdominal GI/Abdominal exam: Present: tenderness, soft. Absent: ascites, distended, mass , organomegaly - Extremities Exam Extremities exam: Present: normal inspection, full ROM - Back Exam Back exam: Present: normal inspection - Neurological Exam Neurological exam: Present: alert, altered - Psychiatric Psychiatric exam: Present: other (groggy/somnolent) - Skin Skin exam: Present: normal color, warm, dry Results - Labs CBC & BMP: 01/30/17 05:14 01/30/17 05:14 Lab Results: I have reviewed the past 24 hour labs
[2017-01-30] MEDS: PROMETHAZINE INJ 25 MG in SODIUM CHLORIDE 0.9% 50 ML IV PRN (11:55)
[2017-01-30 12:09] LABS: Hematocrit 28.4 VOL% (35.7-47.0); Hemoglobin 9.5 GM/DL (12.0-16.0)
[2017-01-30] MEDS ORDERED: SODIUM CHLORIDE 0.9% 1,000 ML IV ONE (16:01)
[2017-01-30 16:23] LABS: Hematocrit 28.5 VOL% (35.7-47.0); Hemoglobin 9.5 GM/DL (12.0-16.0)
[2017-01-30] MEDS ORDERED: SODIUM CHLORIDE 0.9% 500 ML IV STA (16:27)
[2017-01-30] MEDS: TIMOLOL 0.5% OPH SOLN 5 ML BOTTLE BOTH EYES SCH (21:14)
[2017-01-31 03:37] LABS: Basophils % 0.2 % (0.0-0.8); Hematocrit 27.5 VOL% (35.7-47.0); Hemoglobin 9.1 GM/DL (12.0-16.0); Immature Granulocytes % 0.6 %; Immature Granulocytes Absolute 0.07 #; Lymphocytes # 1.4 10*3/uL (1.4-4.0); Mean Corpuscular HGB Conc 33.1 GM/DL (32-36); Mean Corpuscular Hemoglobin 28 PG (27-34); Mean Corpuscular Volume 85.4 FL (87-102); Mean Platelet Volume 10.8 FL (9.6-12.0); Monocytes % 7.7 % (1.7-12.7); Neutrophils # 10.1 10*3/uL (1.4-7.4); Neutrophils % 80.5 % (38.7-73.9); Platelet Count 333 T/CUMM (130-400); Red Blood Count 3.22 MC/CUMM (3.8-5.5); Red Cell Distribution Width 13.2 % (9.3-17.3); White Blood Count 12.6 T/CUMM (4-12)
[2017-01-31] MEDS: SODIUM CHLORIDE 0.9% 1,000 ML IV SCH ×2 (03:40→03:42)
[2017-01-31 04:04] LABS: Calcium 7.1 MG/DL (8.5-10.1); Magnesium 1.3 MG/DL (1.8-2.4); Osmolality,Calculated 284.3 MOS/KG (273-304)
[2017-01-31 05:07] LABS: Band Neutrophils 8 % (0-10); Burr Cells Slight; Hypochromasia 1+; Lymphocytes 10 % (20-55); Platelet Estimate Adequate; Segmented Neutrophils 78 % (50-85); Total Cells Counted 100
[2017-01-31 05:08] LABS: Giant Platelets Few
[2017-01-31] MEDS: metroNIDAZOLE INJ 500 MG in PREMIX 1 EACH IV SCH ×3 (05:25→21:16)
--- NOTE | 2017-01-31 07:34 | Family Practice Progress Note ---
Family Practice - PN: Subj Interval history: Patient states she is actually feeling better this morning and actually is a little hungry. Her hematocrit this morning is 27.5. She has has no bleeding and I think we should start her on Lovenox for DVT prophylaxis. She denies any nausea or vomiting this morning. Her path report hopefully will be out sometime today. Exam (Progress Note) - Constitutional Vitals: Period Temp Pulse Resp BP Sys/Cabrales Pulse Ox Last 24 Hr 95.0 F-99 F 86-98 18-20 104-122/51-60 90-95 Exam: Objective well-developed white female no acute distress. She is able give good history. She certainly appears more comfortable today than yesterday. Cardiovascular: The heart rate is regular without murmurs or gallops. Respiratory: Lungs clear to auscultation bilaterally. Abdomen: Patient has positive bowel sounds and expected postop tenderness. Results - Labs CBC & BMP: 01/31/17 02:42 01/31/17 02:42 Lab Results: I have reviewed the past 24 hour labs Assessment and Plan (1) Colon distention Status: Acute Assessment and plan: 01/29/2017: Patient be admitted to my services. GI and surgery will be consulted. 01/30/2017: Patient is postop diverting colostomy. Biopsies are pending. It certainly appears to be colon cancer. 01/31/2017: Patient is certainly improved this morning Current Visit: Yes (2) Pneumatosis coli Status: Acute Assessment and plan: 01/29/2017: IV antibiotics have been ordered. Surgery is consulted. 01/30/2017. Patient's postop diverting colostomy. 01/31/2017: IV antibiotics are to be continued. Current Visit: Yes Quality Measures - Stroke Symptom Onset Unknown: No
--- NOTE | 2017-01-31 07:41 | Event Note ---
General Surgery Progress Note Chief complaint This patient is a 71-year-old woman admitted with sigmoid colon obstruction treated with diverting colostomy and biopsy of liver and mesenteric nodules on 01/29/2017 Interval history No events overnight. Hemoglobin has stabilized and is 9.1 this morning. TAMY drains are serosanguineous. Urine output improved with some IV fluid bolus last night. Patient is tachycardic this morning but she looks better overall. White blood cell count is up to 12,000 today. Creatinine is normal 0.7. Patient tolerated some liquid intake and her ostomy is working well. It is been emptied twice. Physical exam The patient is afebrile her highest temp was 99.8 and she does have a tachycardia this morning Her blood pressure is normal Abdomen is soft and appropriately tender nondistended. Ostomy is working well. TAMY drains are serosanguineous. Bowel sounds are hypoactive. Labs Reviewed, as above Imaging None new Assessment and plan Start Lovenox DVT chemoprophylaxis Continue SCDs Continue IV fluids and we will change to something with dextrose Diet as tolerated Begin ambulating and mobilizing.
[2017-01-31] MEDS: LEVOFLOXACIN INJ 500 MG in PREMIX 1 EACH IV SCH (08:49)
[2017-01-31] MEDS: CYANOCOBALAMIN 500 MCG TABLET PO SCH (08:50)
[2017-01-31] MEDS: sitaGLIPtin 100 MG TABLET PO SCH (08:50)
[2017-01-31] MEDS: DOCUSATE SODIUM 100 MG CAPSULE PO SCH ×2 (08:51→21:15)
[2017-01-31] MEDS: ONDANSETRON 4 MG/2 ML VIAL IV PRN (08:51)
[2017-01-31] MEDS: INSULIN LISPRO 100 UNIT/ML SUBCUT SCH ×4 (08:51→21:24)
[2017-01-31] MEDS: PANTOPRAZOLE 40 MG VIAL IV SCH (08:52)
[2017-01-31] MEDS: TIMOLOL 0.5% OPH SOLN 5 ML BOTTLE BOTH EYES SCH ×2 (08:58→21:23)
[2017-01-31] MEDS: DEXT 5% NACL 0.45% KCL 20 MEQ 20 MEQ/1,000 ML BAG IV SCH ×2 (09:16→18:48)
[2017-01-31] MEDS: ENOXAPARIN 40 MG/0.4 ML SYRINGE SUBCUT SCH (09:16)
[2017-01-31] MEDS: KETOROLAC 15 MG/1 ML VIAL IV SCH ×3 (09:17→21:15)
[2017-01-31] MEDS: HYDROmorphone PCA 30 MG/30 ML SYRINGE IV SCH (10:58)
--- NOTE | 2017-01-31 18:21 | Pathology Report from [facility] ---
[facility] ACCESSION # : [id number] PATIENT NAME : Swathi Lala ORDERING DR : Nilay Fuentes MD CLINICAL HX: Sigmoid colon stricture POST-OP DX: Same SPECIMEN INFO: #1 Liver BX #2 Mesentary node GROSS DESCRIPTION: Received in formalin in two parts labeled:#1 SWATHI LALA & #1 LIVER BX is a 0.7 x 0.6 cm payan tissue fragment sectioned and submitted in cassette #1.#2 SWATHI SPIKE & #2 MESENTERIC NODE is a pale yellow tissue fragment measuring 1.4 x 1.2 cm sectioned and submitted in cassette #2. DIAGNOSIS FOR SWATHI LALA: #1 LIVER BIOPSY: Metastatic adenocarcinoma consistent with colon primary.#2 MESENTERIC NODE: Metastatic adenocarcinoma consistent with colon primary, with abundant necrosis. COLLECTED DATE: 01/30/2017 [facility] REPORT DATE: 01/31/2017 ELECTRONICALLY SIGNED BY: Sharmaine Brizuela III, M.D. 01/31/2017 - 13:56:12 [facility]
[2017-02-01] MEDS: KETOROLAC 15 MG/1 ML VIAL IV SCH ×4 (02:38→22:16)
[2017-02-01] MEDS: DEXT 5% NACL 0.45% KCL 20 MEQ 20 MEQ/1,000 ML BAG IV SCH ×4 (02:48→23:08)
[2017-02-01] MEDS: metroNIDAZOLE INJ 500 MG in PREMIX 1 EACH IV SCH ×3 (05:14→23:15)
--- NOTE | 2017-02-01 05:53 | Family Practice Progress Note ---
Family Practice - PN: Subj Interval history: Patient states she had a good night she had little bit of a bran muffin yesterday. States her hunger is returning. Her biopsy showed adenocarcinoma consistent with colon as expected. Family is deciding which oncologist they would like to use. Exam (Progress Note) - Constitutional Vitals: Period Temp Pulse Resp BP Sys/Cabrales Pulse Ox Last 24 Hr 98.0 F-98.8 F 84-100 16-20 95-126/52-83 90-97 Exam: Objective well-developed white female no acute distress. She states she is feeling much better this morning. Cardiovascular: The heart rate is regular without murmurs or gallops. Respiratory: Lungs clear to auscultation bilaterally. Abdomen: Patient has positive bowel sounds and expected postop tenderness. Results - Labs CBC & BMP: 01/31/17 02:42 01/31/17 02:42 Lab Results: I have reviewed the past 24 hour labs Assessment and Plan (1) Colon distention Status: Resolved Assessment and plan: 01/29/2017: Patient be admitted to my services. GI and surgery will be consulted. 01/30/2017: Patient is postop diverting colostomy. Biopsies are pending. It certainly appears to be colon cancer. 01/31/2017: Patient is certainly improved this morning Current Visit: Yes (2) Pneumatosis coli Status: Resolved Assessment and plan: 01/29/2017: IV antibiotics have been ordered. Surgery is consulted. 01/30/2017. Patient's postop diverting colostomy. 01/31/2017: IV antibiotics are to be continued. Current Visit: Yes (3) Adenocarcinoma of sigmoid colon Status: Acute Assessment and plan: 02/01/2017: Oncology will be consulted. She is doing well postop. Current Visit: Yes Quality Measures - Stroke Symptom Onset Unknown: No
[2017-02-01 05:57] LABS: Magnesium 1.3 MG/DL (1.8-2.4); Potassium 4.8 MMOL/L (3.5-5.1)
[2017-02-01] MEDS: HYDROmorphone PCA 30 MG/30 ML SYRINGE IV SCH (07:41)
--- NOTE | 2017-02-01 08:34 | Event Note ---
General Surgery Progress Note Chief complaint This patient is a 71-year-old woman admitted with sigmoid colon obstruction treated with diverting colostomy and biopsy of liver and mesenteric nodules on 01/29/2017 Interval history Patient had some solid food last night with no nausea or vomiting. She is having some reflux. She got up and sat on the side of the bed yesterday. We did get biopsy results back yesterday which showed adenocarcinoma consistent with colon primary. TAMY drains are moderate output serous fluid. Urine output is adequate. Creatinine is normal. CBC for some reason is still not back yet. Physical exam Afebrile this morning with normal vital signs Abdomen is soft and appropriately tender nondistended. Ostomy is working well. TAMY drains are serosanguineous. Bowel sounds are hypoactive. Midline incision is clean with the VAC was removed. It still has a little bit of odor and drainage and I think it is too early for a delayed primary closure. Labs Reviewed, as above Imaging None new Assessment and plan Start Lovenox DVT chemoprophylaxis Increase activity and physical therapy consult Continue Galvan until patient is more mobile Diet as tolerated Continue IV fluids until adequate p.o. intake is occurring Repeat labs tomorrow
[2017-02-01 08:38] LABS: Basophils % 0.2 % (0.0-0.8); Eosinophils # 0.2 10*3/uL (0.0-0.87); Eosinophils % 1.5 % (0.00-10.9); Hematocrit 26.2 VOL% (35.7-47.0); Hemoglobin 8.8 GM/DL (12.0-16.0); Immature Granulocytes % 0.8 %; Lymphocytes # 1.5 10*3/uL (1.4-4.0); Lymphocytes % 11.8 % (21.3-54.2); Mean Corpuscular HGB Conc 33.6 GM/DL (32-36); Mean Corpuscular Hemoglobin 29 PG (27-34); Mean Corpuscular Volume 86.2 FL (87-102); Mean Platelet Volume 10.8 FL (9.6-12.0); Monocytes # 0.6 10*3/uL (0.11-0.8); Monocytes % 4.4 % (1.7-12.7); Neutrophils # 10.4 10*3/uL (1.4-7.4); Neutrophils % 81.3 % (38.7-73.9); Platelet Count 315 T/CUMM (130-400); Red Blood Count 3.04 MC/CUMM (3.8-5.5); Red Cell Distribution Width 13.5 % (9.3-17.3); White Blood Count 12.8 T/CUMM (4-12)
[2017-02-01] MEDS: CYANOCOBALAMIN 500 MCG TABLET PO SCH (08:41)
[2017-02-01] MEDS: DOCUSATE SODIUM 100 MG CAPSULE PO SCH ×2 (08:42→22:16)
[2017-02-01] MEDS: ENOXAPARIN 40 MG/0.4 ML SYRINGE SUBCUT SCH (08:42)
[2017-02-01] MEDS: sitaGLIPtin 100 MG TABLET PO SCH (08:42)
[2017-02-01] MEDS: PANTOPRAZOLE 40 MG VIAL IV SCH (08:44)
[2017-02-01 09:15] LABS: Poikilocytosis 1+
[2017-02-01] MEDS ORDERED: CALCIUM CARBONATE CHEW 500 MG TABLET PO PRN (09:38)
[2017-02-01] MEDS: INSULIN LISPRO 100 UNIT/ML SUBCUT SCH ×4 (09:41→22:35)
[2017-02-01] MEDS: LEVOFLOXACIN INJ 500 MG in PREMIX 1 EACH IV SCH (09:41)
[2017-02-01] MEDS: TIMOLOL 0.5% OPH SOLN 5 ML BOTTLE BOTH EYES SCH (09:41)
--- NOTE | 2017-02-01 11:42 | Order Completion Report ---
See report scanned to EMR
--- NOTE | 2017-02-01 13:48 | Order Completion Report ---
See report scanned to EMR
--- NOTE | 2017-02-01 14:17 | Event Note ---
I was called for the patient having substernal chest pain. She thought it was probably just from her reflux. EKG is performed which revealed to have a sinus arrhythmia. Cardiac isoenzymes are also ordered and her troponin was 1.2. I discussed her care with Dr. Riley Gary and also got her a bed in CCU when is when one is available. Dr. Gary is going to evaluate her and see if he thinks she requires any further study. I called and talked to her daughter Beth about these developments.
[2017-02-01 14:20] LABS: Apearance,Urine CLEAR (Clear); Bacteria,Urine Occasional /HPF (Few); Bilirubin,Urine Negative (Negative); Blood, Urine Negative (Negative); Glucose,Urine (UA) >=500 mg/dL (Negative); Ketones,Urine Negative (Negative); Mucus,Urine Occasional /LPF (Occasional); Nitrite,Urine Negative (Negative); Protein,Urine Negative; RBC,Urine 1 /HPF (0-4); Urine Color Yellow (Yellow); Urine Specific Gravity 1.025 (1.001-1.035); Urine Urobilinogen < 2.0 EU/DL (0.2-1.0); WBC,Urine 3 /HPF (0-6)
--- NOTE | 2017-02-01 14:30 | Cardiology Progress Note ---
<Kajal Hui Mariano - Last Filed: 02/01/17 14:11> Exam (Progress Note) - Constitutional Vitals: Period Temp Pulse Resp BP Sys/Cabrales Pulse Ox Last 24 Hr 97.3 F-98.8 F 84-112 18-20 99-125/43-83 87-97 Result/EKG - Labs CBC & BMP: 02/01/17 05:07 02/01/17 05:07 Labs: Laboratory Results - last 24 hr 01/31/17 01/31/17 02/01/17 15:24 19:34 05:07 WBC 12.8 H RBC 3.04 L Hgb 8.8 L Hct 26.2 L MCV 86.2 L MCH 29 MCHC 33.6 RDW 13.5 Plt Count 315 MPV 10.8 Neut % (Auto) 81.3 H Lymph % (Auto) 11.8 L [place] % (Auto) 4.4 Eos % (Auto) 1.5 Baso % (Auto) 0.2 Neut # (Auto) 10.4 H Lymph # (Auto) 1.5 [place] # (Auto) 0.6 Eos # (Auto) 0.2 Baso # (Auto) 0.0 Immature Gran % 0.8 Nucleated RBC % 0.0 Immature Gran # 0.10 Nucleated RBCs # 0.00 Immature Plt Fraction 0.0 Poikilocytosis 1+ Sodium Potassium Chloride Carbon Dioxide Anion Gap BUN Creatinine GFR Calculation BUN/Creatinine Ratio Glucose POC Glucose 225 H 209 H Calculated Osmolality Calcium Magnesium Total Creatine Kinase CK-MB (CK-2) Troponin I 02/01/17 02/01/17 02/01/17 05:07 07:44 11:57 WBC RBC Hgb Hct MCV MCH MCHC RDW Plt Count MPV Neut % (Auto) Lymph % (Auto) [place] % (Auto) Eos % (Auto) Baso % (Auto) Neut # (Auto) Lymph # (Auto) [place] # (Auto) Eos # (Auto) Baso # (Auto) Immature Gran % Nucleated RBC % Immature Gran # Nucleated RBCs # Immature Plt Fraction Poikilocytosis Sodium 136 Potassium 4.8 Chloride 106 Carbon Dioxide 23 Anion Gap 11.8 BUN 14 Creatinine 0.70 GFR Calculation 80 BUN/Creatinine Ratio 20.00 Glucose 235 H POC Glucose 250 H 368 H Calculated Osmolality 280.0 Calcium 7.0 L Magnesium 1.3 L Total Creatine Kinase CK-MB (CK-2) Troponin I 02/01/17 12:33 WBC RBC Hgb Hct MCV MCH MCHC RDW Plt Count MPV Neut % (Auto) Lymph % (Auto) [place] % (Auto) Eos % (Auto) Baso % (Auto) Neut # (Auto) Lymph # (Auto) [place] # (Auto) Eos # (Auto) Baso # (Auto) Immature Gran % Nucleated RBC % Immature Gran # Nucleated RBCs # Immature Plt Fraction Poikilocytosis Sodium Potassium Chloride Carbon Dioxide Anion Gap BUN Creatinine GFR Calculation BUN/Creatinine Ratio Glucose POC Glucose Calculated Osmolality Calcium Magnesium Total Creatine Kinase 116 CK-MB (CK-2) 5.0 H Troponin I 1.280 H Quality Measures - Stroke Symptom Onset Unknown: No <Riley aGry - Last Filed: 02/01/17 14:45> Cardiology - PN: Subj Interval history: Cardiology consult. 71-year-old woman with new onset chest pain that feels different from her typical reflux. Troponin level is 1.28. EKG shows sinus rhythm with inferolateral ST-T wave changes and possible early lateral wall infarct. There are tiny Q waves. Patient has long-standing hypertension and diabetes. She also has untreated hyperlipidemia due to myalgias. Lifetime non-smoker and nondrinker. She does have chronic dyspnea and easy fatigability. Flex sig January 29, 2017 showed obstruction of sigmoid colon by Dr. Mai. Patient underwent exploratory laparotomy which was difficult due to dense adhesions by Dr. Fuentes. A liver biopsy lateral segment and a large mesenteric lymph node showed metastatic adenocarcinoma with colon primary. Lab data today White count 12.8 hemoglobin 8.8 hematocrit 26.2 platelet count 315,000 sodium 136 potassium 4.8 chloride 106 CO2 23 BUN 14 creatinine 0.70 glucose 235 magnesium 1.36 troponin 1.28 86 and respirations are 22 bilateral arcus no xanthelasma she is anxious. No carotid bruit. Flat neck veins. Decreased breath sounds but clear. Regular rhythm no murmur or gallop. Abdomen is soft. She has a functioning colostomy left lower quadrant and she has a drain in the right lower quadrant. Femoral pulses are 2+ with faint bilateral bruits distal pulses are 2+ no edema. Impression New onset chest pain with elevated troponin 1.[address]-T wave changes, consistent with unstable angina. Multiple risk factors Long-standing diabetes Chronic hypertension Hyperlipidemia untreated due to myalgias with statins Lifetime non-smoker and nondrinker Mother of heart attack at age 80. 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 Plan Cardiac cath now discussed with patient daughter nando who is a nurse and Normal saline hydration Exam (Progress Note) - Constitutional Vitals: Period Temp Pulse Resp BP Sys/Cabrales Pulse Ox Last 24 Hr 97.3 F-98.8 F 84-112 18-20 99-125/43-83 87-97 Result/EKG - Labs CBC & BMP: 02/01/17 05:07 02/01/17 05:07 Labs: Laboratory Results - last 24 hr 01/31/17 01/31/17 02/01/17 15:24 19:34 05:07 WBC 12.8 H RBC 3.04 L Hgb 8.8 L Hct 26.2 L MCV 86.2 L MCH 29 MCHC 33.6 RDW 13.5 Plt Count 315 MPV 10.8 Neut % (Auto) 81.3 H Lymph % (Auto) 11.8 L [place] % (Auto) 4.4 Eos % (Auto) 1.5 Baso % (Auto) 0.2 Neut # (Auto) 10.4 H Lymph # (Auto) 1.5 [place] # (Auto) 0.6 Eos # (Auto) 0.2 Baso # (Auto) 0.0 Immature Gran % 0.8 Nucleated RBC % 0.0 Immature Gran # 0.10 Nucleated RBCs # 0.00 Immature Plt Fraction 0.0 Poikilocytosis 1+ Sodium Potassium Chloride Carbon Dioxide Anion Gap BUN Creatinine GFR Calculation BUN/Creatinine Ratio Glucose POC Glucose 225 H 209 H Calculated Osmolality Calcium Magnesium Total Creatine Kinase CK-MB (CK-2) Troponin I Urine Color Urine Appearance Urine pH Ur Specific [place] Urine Protein Urine Glucose (UA) Urine Ketones Urine Blood Urine Nitrate Urine Bilirubin Urine Urobilinogen Urine Leukocytes Urine RBC Urine WBC Urine Bacteria Urine Mucus Ur Culture Indicated? 02/01/17 02/01/17 02/01/17 05:07 07:44 11:57 WBC RBC Hgb Hct MCV MCH MCHC RDW Plt Count MPV Neut % (Auto) Lymph % (Auto) [place] % (Auto) Eos % (Auto) Baso % (Auto) Neut # (Auto) Lymph # (Auto) [place] # (Auto) Eos # (Auto) Baso # (Auto) Immature Gran % Nucleated RBC % Immature Gran # Nucleated RBCs # Immature Plt Fraction Poikilocytosis Sodium 136 Potassium 4.8 Chloride 106 Carbon Dioxide 23 Anion Gap 11.8 BUN 14 Creatinine 0.70 GFR Calculation 80 BUN/Creatinine Ratio 20.00 Glucose 235 H POC Glucose 250 H 368 H Calculated Osmolality 280.0 Calcium 7.0 L Magnesium 1.3 L Total Creatine Kinase CK-MB (CK-2) Troponin I Urine Color Urine Appearance Urine pH Ur Specific [place] Urine Protein Urine Glucose (UA) Urine Ketones Urine Blood Urine Nitrate Urine Bilirubin Urine Urobilinogen Urine Leukocytes Urine RBC Urine WBC Urine Bacteria Urine Mucus Ur Culture Indicated? 02/01/17 02/01/17 12:33 13:50 WBC RBC Hgb Hct MCV MCH MCHC RDW Plt Count MPV Neut % (Auto) Lymph % (Auto) [place] % (Auto) Eos % (Auto) Baso % (Auto) Neut # (Auto) Lymph # (Auto) [place] # (Auto) Eos # (Auto) Baso # (Auto) Immature Gran % Nucleated RBC % Immature Gran # Nucleated RBCs # Immature Plt Fraction Poikilocytosis Sodium Potassium Chloride Carbon Dioxide Anion Gap BUN Creatinine GFR Calculation BUN/Creatinine Ratio Glucose POC Glucose Calculated Osmolality Calcium Magnesium Total Creatine Kinase 116 CK-MB (CK-2) 5.0 H Troponin I 1.280 H Urine Color Yellow Urine Appearance Clear Urine pH 6.0 Ur Specific [place] 1.025 Urine Protein Negative Urine Glucose (UA) >=500 Urine Ketones Negative Urine Blood Negative Urine Nitrate Negative Urine Bilirubin Negative Urine Urobilinogen < 2.0 H Urine Leukocytes Small H Urine RBC 1 Urine WBC 3 Urine Bacteria Occasional Urine Mucus Occasional Ur Culture Indicated? Results to follow
[2017-02-01] MEDS ORDERED: diphenhydrAMINE CAP 25 MG CAPSULE PO ONE (14:31)
[2017-02-01] MEDS ORDERED: POTASSIUM CHLORIDE RIDER 10 MEQ in PREMIX 1 EACH IV PRN (14:31)
[2017-02-01] MEDS ORDERED: MAGNESIUM SULF RIDER 2 GM in PREMIX 1 EACH IV PRN (14:31)
--- NOTE | 2017-02-01 14:46 | History and Physical Update ---
Sedation H&P Update - History and Physical H&P was reviewed, the patient examined and there: are no changes in the patients condition since last H&P was completed. - Dictation Physical: refer to H&P completed by admitting physician - Physical Exam Mental Status: alert and oriented Heart: regular rate and rhythm Lung: clear to auscultation Abdomen: within normal limits Vitals: within normal limits - Sedation Plan for Sedation: moderate Patient Consent: Procedure disscussed with patient and patinet has consented., Risks and benefits were discussed with patient,including infection,, bleeding, injury to surrounding structures, seizure, temporary nerve, Patient understands and accepts potential risks/benefits and agrees to, proceed. ASA Class: II Airway Assessment: Class II: Soft palate, uvula, fauces visible
[2017-02-01] MEDS ORDERED: DIAZEPAM 5 MG TABLET PO ONE (14:53)
[2017-02-01] MEDS ORDERED: ASPIRIN CHEW 81 MG TABLET PO ONE (14:58)
[2017-02-01] MEDS ORDERED: NITROGLYCERIN SL 0.4 MG TABLET SL PRN (14:58)
[2017-02-01] MEDS ORDERED: SODIUM CHLORIDE 0.9% 1,000 ML IV SCH (15:00)
[2017-02-01 15:21] LABS: CKMB % 5.8 %
[2017-02-01 15:24] LABS: Troponin I Only 4.42 NG/ML (0.00-0.045)
[2017-02-01] MEDS ORDERED: NITROGLYCERIN DRIP 50 MG/250 ML BOTTLE IV ONE (15:36)
[2017-02-01] MEDS: ONDANSETRON 4 MG/2 ML VIAL IV PRN ×2 (15:47→21:21)
[2017-02-01] MEDS ORDERED: NITROGLYCERIN DRIP 50 MG/250 ML BOTTLE IV SCH (16:00)
[2017-02-01] MEDS ORDERED: LIDOCAINE 1% 20 ML VIAL ONE (16:07)
[2017-02-01] MEDS ORDERED: MIDAZOLAM 2 MG/2 ML VIAL ONE (16:22)
[2017-02-01] MEDS ORDERED: BIVALIRUDIN 250 MG VIAL IV ONE (16:29)
[2017-02-01] MEDS ORDERED: EPTIFIBATIDE 20,000 MCG/10 ML VIAL ONE (16:47)
[2017-02-01] MEDS ORDERED: EPTIFIBATIDE 75 MG/100 ML BOTTLE IV ONE (16:47)
[2017-02-01] MEDS ORDERED: NITROPRUSSIDE 50 MG/2 ML VIAL ONE ×2 (16:49→16:52)
[2017-02-01] MEDS ORDERED: ATROPINE 1 MG/10 ML SYRINGE ONE (17:28)
[2017-02-01] MEDS ORDERED: EPINEPHrine 1 MG/10 ML SYRINGE ONE (17:29)
[2017-02-01] MEDS ORDERED: DOPamine 800 MG/250 ML PREMIX IV ONE (17:57)
[2017-02-01] MEDS ORDERED: ETOMIDATE 20 MG/10 ML VIAL IV ONE (18:05)
[2017-02-01] MEDS ORDERED: VECURONIUM 10 MG VIAL IV ONE (18:06)
[2017-02-01] MEDS ORDERED: NOREPINEPHRINE 4 MG/4 ML VIAL IV ONE (18:11)
[2017-02-01] MEDS ORDERED: TICAGRELOR 90 MG TABLET PO ONE (18:13)
[2017-02-01] MEDS: EPTIFIBATIDE 75 MG/100 ML BOTTLE IV SCH ×2 (18:50→19:20)
[2017-02-01] MEDS: DOPamine 800 MG/250 ML PREMIX IV SCH ×2 (18:50→19:19)
[2017-02-01] MEDS: NOREPINEPHRINE 8 MG in SODIUM CHLORIDE 0.9% 242 ML IV SCH (19:00)
[2017-02-01 19:46] LABS: ABG Base Excess -10.6 MMOL/L (-2.5-2.5); ABG HCO3 15.9 MMOL/L (20-26); ABG Oxygen Saturation 86.3 % (95-100); ABG PCO2 33.4 MM HG (35-48); ABG PH 7.273 (7.35-7.45); ABG TCO2 14.3 MMOL/L (23-27); Allen Test Positive; Pt O2 Delivery Device Ventilator
--- NOTE | 2017-02-01 20:00 | XRay Report ---
History: Endotracheal tube placement Date: 02/01/2017 at 7:16 PM Study: Chest x-ray single view portable Comparison exam: January 29, 2017 The endotracheal tube is well-positioned over the trachea, superior to the dave. A nasogastric tube is positioned with its tip overlying the proximal to mid stomach body level. There is mild cardiomegaly. The pulmonary vasculature is slightly prominent. The mediastinal contours are unchanged. There is some atelectatic change in the lower lungs bilaterally. There may be some mild bibasilar pulmonary edema. There is mild left pleural effusion. Osseous structures are similar. Impression: The endotracheal and nasogastric tubes are in satisfactory position. Bibasilar atelectasis. Possible mild bibasilar pulmonary edema as well PROCEDURE INTERPRETED AT [facility] DEPARTMENT OF RADIOLOGY Final Report Signed by: Dr. Aura Mai
[2017-02-01] MEDS ORDERED: SODIUM BICARBONATE 50 MEQ/50 ML SYRINGE IV ONE ×2 (20:03→20:06)
--- NOTE | 2017-02-01 20:17 | Pulmonology Consult Note ---
History of Present Illness Chief complaint: Mechanical ventilation. Acute OR. Colon CA History of present illness: Ms. Varghese is a 71 year old white female whom I been asked to see in pulmonary consultation for management of pulmonary problems and mechanical ventilation. This patient is a mother of Darcie Stein RN This patient acute cardiac event today and is just back from cardiac catheterization. She has extensive cardiovascular disease and required a number of stents. See cardiac catheterization report. The patient is sedated and cannot give a review of systems. Review of systems is therefore negative. Allergies. Betadine. Home medicines. See below Hospital medicines. See below Past history. On 01/29/2017 this patient had abdominal surgery. She had an end sigmoid colostomy with the distal sigmoid colon mucosal fistula. She had excision of mesenteric nodes. Her sigmoid colon was obstructed. She had colon cancer and appears there was metastasis to the liver. History of high blood pressure and diabetes. Glaucoma. Prolapsed urinary bladder. History of gastroesophageal reflux disease. History of arthritis. Previous appendectomy. Social history. The mother of christin Stein RN never smoked. Family history. Not available Chest x-ray. Mild cardiomegaly. Perihilar vascular engorgement. Area of linear atelectasis is diagonally across the right midlung field. Endotracheal tube is in good position ABGs. FiO2 100%. PH 7.27, PCO2 33.4, PO2 57, bicarb 15.9. Adjustments have been made. Lab. Creatinine 0.7 with a BUN of 14 normal electrolytes. H&H is 8.8/26.2. White count is 12,800. Platelets are 315,000. Urine shows no evidence of infection. Troponin is 4 0.42. Physical exam. General. Very pale and appears acutely ill Vital signs. See below Face is symmetrical. No swelling of the lips or tongue Chest. Slight large airway congestion. Heart. Lateral PMI Abdomen nondistended. Very rare bowel sounds Lower extremities. No obvious deep venous thrombophlebitis Neck. Symmetrical. No meningismus. Lymphatics. No submandibular cervical supraclavicular or epitrochlear adenopathy Remainder the physical exam is noncontributory. Impression. 1. Acute myocardial infarction requiring multiple stents. Extensive three- vessel coronary artery disease. 2. Recent colon obstruction secondary to colon cancer with metastatic disease 3. Diabetes mellitus 4. High blood pressure 5. Post cardiac cath hypoxemia. 6. Anemia Plan. 1. Ventilator adjustments made. 2. Weaning protocol. 3. Physical therapy protocol 4. As per cardiology. Case discussed with Dr. Geronimo shannon. We have coordinated [facility] Medications Medication Instructions Recorded Confirmed Type Aspirin [Ecotrin] 81 mg PO DAILY 02/06/16 01/30/17 History Glimepiride [Amaryl] 4 mg PO BID 02/06/16 01/30/17 History Timolol Maleate [Timolol 0.5% Oph 1 drop BOTH EYES BID 02/06/16 01/30/17 History Soln] Valsartan [Diovan] 160 mg PO DAILY 02/06/16 01/30/17 History amLODIPine [Norvasc] 5 mg PO DAILY 02/06/16 01/30/17 History hydroCHLOROthiazide 25 mg PO DAILY PRN 02/06/16 01/30/17 History [Hydrochlorothiazide] metFORMIN [Glucophage] 1,000 mg PO BID W/MEALS 02/06/16 01/30/17 History Cyanocobalamin (Vitamin B-12) 1,000 mcg PO DAILY 04/28/16 01/30/17 History [Vitamin B-12] sitaGLIPtin [Januvia] 100 mg PO DAILY 01/30/17 01/30/17 History Allergies Allergy/AdvReac Type Severity Reaction Status Date / Time povidone-iodine Allergy Intermediate BLISTER Verified 03/22/16 06:17 [From Betadine] soap [From Betadine] Allergy Intermediate BLISTER Verified 03/22/16 06:17 Exam (Pulmonay) H&P - Constitutional Vitals: Period Temp Pulse Resp BP Sys/Cabrales Pulse Ox Last 24 Hr 97.3 F-98.4 F 78-128 14-23 88-124/43-82 87-97 Medical,Surgical,& Family Hx - Medical History Cardio: History of: Hypertension Neurology: No history of: Seizures HEENT: History of: 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 Scott) Endocrine: History of: Diabetes Mellitus (NIDDM) Respiratory: No history of: Pneumonia (No Pneum Vac), Respiratory Problems (Flu Vac Dec 2015) Genitourinary: History of: Bladder Problem (Leaky Bladder; Told in 1995 She had Prolapse Bladder) Gastrointestinal: History of: GERD Musculoskeletal: History of: Musculoskeletal Problems (Arthritis) Other: History of: Anesthesia Reactions (Nausea) No history of: Cancer - Surgical History HEENT Surgeries: Patient denies: Eye Surgery (02/07/[address] Dejesus; Sched for Rt ) Abdominal Surgeries: Surgical HX of: Appendectomy Patient denies: Colonoscopy Reproductive Surgeries: Surgical HX of;: Hysterectomy (Partial), Tubal Ligation (1971) Orthopedic Surgeries: Surgical HX of;: Orthopedic Surgery (CTR LT; TFR RT; CTR RT) - Social History Smoking Status: Never smoker Frequency of Alcohol Use: None Type of Drug Use: None Results - Labs CBC & BMP: 02/01/17 05:07 02/01/17 05:07 Quality Measures - Stroke Symptom Onset Unknown: No
[2017-02-01 20:57] LABS: CKMB % 6.5 %
[2017-02-01] MEDS ORDERED: MIDAZOLAM 100 MG in SODIUM CHLORIDE 0.9% 80 ML IV SCH (22:00)
[2017-02-01] MEDS: TICAGRELOR 90 MG TABLET PO SCH (22:16)
[2017-02-01] MEDS: NITROGLYCERIN 2% OINT 1 INCH/GM PACK TOP SCH (22:30)
[2017-02-01] MEDS: PROMETHAZINE INJ 25 MG in SODIUM CHLORIDE 0.9% 50 ML IV PRN (23:07)
[2017-02-02] MEDS: TIMOLOL 0.5% OPH SOLN 5 ML BOTTLE BOTH EYES SCH ×2 (01:15→12:45)
[2017-02-02] MEDS: HYDROmorphone PCA 30 MG/30 ML SYRINGE IV SCH (01:15)
[2017-02-02 01:16] LABS: CKMB % 102.5 %
[2017-02-02 01:18] LABS: Troponin I Only > 200.000 NG/ML (0.00-0.045)
[2017-02-02] MEDS: EPTIFIBATIDE 75 MG/100 ML BOTTLE IV SCH ×2 (02:54→06:46)
[2017-02-02 03:17] LABS: ABG Base Excess -10.7 MMOL/L (-2.5-2.5); ABG HCO3 15.2 MMOL/L (20-26); ABG Oxygen Saturation 37.6 % (95-100); ABG PH 7.258 (7.35-7.45); ABG TCO2 14.9 MMOL/L (23-27); Allen Test Positive; Pt O2 Delivery Device Ventilator
[2017-02-02 03:19] LABS: ABG PO2 26.8 MM HG (80-95)
[2017-02-02 03:46] LABS: ABG Base Excess -9.6 MMOL/L (-2.5-2.5); ABG HCO3 13.2 MMOL/L (20-26); ABG Oxygen Saturation 99.4 % (95-100); ABG PH 7.422 (7.35-7.45); ABG PO2 450.4 MM HG (80-95); ABG TCO2 13.9 MMOL/L (23-27)
[2017-02-02 03:48] LABS: ABG PCO2 20.8 MM HG (35-48)
[2017-02-02] MEDS: KETOROLAC 15 MG/1 ML VIAL IV SCH ×2 (04:10→12:45)
[2017-02-02] MEDS: metroNIDAZOLE INJ 500 MG in PREMIX 1 EACH IV SCH (04:50)
[2017-02-02 06:53] LABS: Calcium 7.5 MG/DL (8.5-10.1); Osmolality,Calculated 287.4 MOS/KG (273-304)
[2017-02-02 07:01] LABS: Potassium 6.5 MMOL/L (3.5-5.1)
[2017-02-02 07:12] LABS: Basophils % 0.2 % (0.0-0.8); Hematocrit 28.4 VOL% (35.7-47.0); Hemoglobin 9.4 GM/DL (12.0-16.0); Immature Granulocytes % 3.3 %; Immature Granulocytes Absolute 0.63 #; Lymphocytes # 1.6 10*3/uL (1.4-4.0); Lymphocytes % 8.4 % (21.3-54.2); Mean Corpuscular HGB Conc 33.1 GM/DL (32-36); Mean Corpuscular Hemoglobin 28 PG (27-34); Mean Corpuscular Volume 84.8 FL (87-102); Mean Platelet Volume 10.6 FL (9.6-12.0); Monocytes # 1.2 10*3/uL (0.11-0.8); Monocytes % 6.4 % (1.7-12.7); NRBC # 0.05 10*3/uL; Neutrophils # 15.5 10*3/uL (1.4-7.4); Neutrophils % 81.7 % (38.7-73.9); Platelet Count 557 T/CUMM (130-400); Red Blood Count 3.35 MC/CUMM (3.8-5.5); Red Cell Distribution Width 13.6 % (9.3-17.3)
--- NOTE | 2017-02-02 07:33 | Order Completion Report ---
See report scanned to EMR
[2017-02-02 07:39] LABS: Band Neutrophils 3 % (0-10); Burr Cells Slight; Giant Platelets Few; Hypochromasia Slight; Lymphocytes 9 % (20-55); Ovalocytes Slight; Platelet Estimate Increased; Segmented Neutrophils 80 % (50-85); Total Cells Counted 100
[2017-02-02] MEDS: NOREPINEPHRINE 8 MG in SODIUM CHLORIDE 0.9% 242 ML IV SCH (07:48)
[2017-02-02 07:57] LABS: CKMB % 6.8 %
[2017-02-02 08:13] LABS: Troponin I Only > 200.000 NG/ML (0.00-0.045)
[2017-02-02 08:36] LABS: Albumin 1.6 G/DL (3.4-5.0); Bilirubin,Total 0.4 MG/DL (0.2-1.0); Calcium 7.3 MG/DL (8.5-10.1); Osmolality,Calculated 287.5 MOS/KG (273-304); Total Protein 4.3 G/DL (6.4-8.3)
[2017-02-02 08:40] LABS: Potassium 6.2 MMOL/L (3.5-5.1)
[2017-02-02] MEDS ORDERED: SODIUM POLYSTYRENE SULFATE 15 GM/60 ML BOTTLE ONE (08:56)
[2017-02-02] MEDS ORDERED: ASPIRIN EC 81 MG TABLET PO SCH (09:00)
[2017-02-02] MEDS ORDERED: PHENYLEPHRINE DRIP 40 MG/250 ML PREMIX IV ONE (09:04)
[2017-02-02] MEDS ORDERED: INSULIN REGULAR 100 UNIT/ML IV ONE (09:13)
[2017-02-02] MEDS ORDERED: SODIUM POLYSTYRENE SULFATE 15 GM/60 ML BOTTLE PO ONE (09:14)
[2017-02-02] MEDS: DEXT 5% NACL 0.45% KCL 20 MEQ 20 MEQ/1,000 ML BAG IV SCH (09:16)
--- NOTE | 2017-02-02 09:17 | Cardiology Progress Note ---
Cardiology - PN: Subj Interval history: Cardiology note Day 1 status post anterior infarction with cardiogenic shock Status post LAD stent and RCA stent. Occluded mid circumflex. Ejection fraction 25% with severe anteroapical hypokinesis Currently on full dose dopamine and levo fed and blood pressure 100 systolic. Patient is tachycardic O2 sat 90 and 100% FiO2 Chest x-ray shows mild cardiomegaly and CHF Right groin site is clean and dry. No losing Patient is cool 1+ distal pulse Abdomen soft with functioning colostomy Tachycardic no murmur Lab data today White count 19.0 hemoglobin 9.4 hematocrit 28.4 Sodium 132 potassium 6.2 chloride 103 CO2 12 BUN 22 creatinine 1.10 glucose 478 and rechecked. Glucose 468 magnesium 2.0 CPK 1886 troponin greater than 200 Impression Day 1 status post anterior infarction with cardiogenic shock. Pains hypotensive on high-dose pressor Ejection fraction 25% severe anteroapical hypokinesis Status post LAD and RCA stent Long-standing diabetes Chronic hypertension Hyperlipidemia untreated due to myalgias with statins Lifetime non-smoker Recently diagnosed adenocarcinoma sigmoid colon January 29, 2017 with stage IV disease metastatic to liver and mesenteric lymph node Plan Insulin infusion 30 g Kayexalate DC dopamine. Will begin phenylephrine and uptitrate as needed Ventilator support Discussed with Pollo and her daughter Leighton Labs in a.m. Exam (Progress Note) - Constitutional Vitals: Period Temp Pulse Resp BP Sys/Cabrales Pulse Ox Last 24 Hr 95.9 F-98.2 F 78-137 12-32 62-133/36-101 80-100 Result/EKG - Labs CBC & BMP: 02/02/17 07:00 02/02/17 07:00 Labs: Laboratory Results - last 24 hr 02/01/17 02/01/17 02/01/17 05:07 11:57 12:33 WBC RBC Hgb Hct MCV MCH MCHC RDW Plt Count MPV Neut % (Auto) Lymph % (Auto) [place] % (Auto) Eos % (Auto) Baso % (Auto) Neut # (Auto) Lymph # (Auto) [place] # (Auto) Eos # (Auto) Baso # (Auto) Total Counted Immature Gran % Nucleated RBC % Immature Gran # Segmented Neutrophils Band Neutrophils Lymphocytes Monocytes Nucleated RBCs # Platelet Estimate Giant Platelets Immature Plt Fraction Hypochromasia Poikilocytosis 1+ Ovalocytes [place] Cells Morphology Comment ABG pH ABG pCO2 ABG pO2 ABG HCO3 ABG Total CO2 ABG O2 Saturation ABG Base Excess FiO2 Sodium Potassium Chloride Carbon Dioxide Anion Gap BUN Creatinine GFR Calculation BUN/Creatinine Ratio Glucose POC Glucose 368 H Calculated Osmolality Calcium Magnesium Total Bilirubin AST ALT Alkaline Phosphatase Total Creatine Kinase 116 CK-MB (CK-2) 5.0 H CK and CKMB Interp Troponin I 1.280 H Total Protein Albumin Globulin Albumin/Globulin Ratio Urine Color Urine Appearance Urine pH Ur Specific [place] Urine Protein Urine Glucose (UA) Urine Ketones Urine Blood Urine Nitrate Urine Bilirubin Urine Urobilinogen Urine Leukocytes Urine RBC Urine WBC Urine Bacteria Urine Mucus Ur Culture Indicated? 02/01/17 02/01/17 02/01/17 13:50 14:34 14:36 WBC RBC Hgb Hct MCV MCH MCHC RDW Plt Count MPV Neut % (Auto) Lymph % (Auto) [place] % (Auto) Eos % (Auto) Baso % (Auto) Neut # (Auto) Lymph # (Auto) [place] # (Auto) Eos # (Auto) Baso # (Auto) Total Counted Immature Gran % Nucleated RBC % Immature Gran # Segmented Neutrophils Band Neutrophils Lymphocytes Monocytes Nucleated RBCs # Platelet Estimate Giant Platelets Immature Plt Fraction Hypochromasia Poikilocytosis Ovalocytes [place] Cells Morphology Comment ABG pH ABG pCO2 ABG pO2 ABG HCO3 ABG Total CO2 ABG O2 Saturation ABG Base Excess FiO2 Sodium Potassium Chloride Carbon Dioxide Anion Gap BUN Creatinine GFR Calculation BUN/Creatinine Ratio Glucose POC Glucose 358 H Calculated Osmolality Calcium Magnesium Total Bilirubin AST ALT Alkaline Phosphatase Total Creatine Kinase 185 D CK-MB (CK-2) 10.7 H D CK and CKMB Interp 5.8 Troponin I 4.420 H D Total Protein Albumin Globulin Albumin/Globulin Ratio Urine Color Yellow Urine Appearance Clear Urine pH 6.0 Ur Specific [place] 1.025 Urine Protein Negative Urine Glucose (UA) >=500 Urine Ketones Negative Urine Blood Negative Urine Nitrate Negative Urine Bilirubin Negative Urine Urobilinogen < 2.0 H Urine Leukocytes Small H Urine RBC 1 Urine WBC 3 Urine Bacteria Occasional Urine Mucus Occasional Ur Culture Indicated? Results to follow 02/01/17 02/01/17 02/01/17 15:34 19:16 19:45 WBC RBC Hgb Hct MCV MCH MCHC RDW Plt Count MPV Neut % (Auto) Lymph % (Auto) [place] % (Auto) Eos % (Auto) Baso % (Auto) Neut # (Auto) Lymph # (Auto) [place] # (Auto) Eos # (Auto) Baso # (Auto) Total Counted Immature Gran % Nucleated RBC % Immature Gran # Segmented Neutrophils Band Neutrophils Lymphocytes Monocytes Nucleated RBCs # Platelet Estimate Giant Platelets Immature Plt Fraction Hypochromasia Poikilocytosis Ovalocytes [place] Cells Morphology Comment ABG pH 7.273 L ABG pCO2 33.4 L ABG pO2 57.0 L ABG HCO3 15.9 L ABG Total CO2 14.3 L ABG O2 Saturation 86.3 L ABG Base Excess -10.6 L FiO2 100.00 Sodium Potassium Chloride Carbon Dioxide Anion Gap BUN Creatinine GFR Calculation BUN/Creatinine Ratio Glucose POC Glucose 311 H Calculated Osmolality Calcium Magnesium Total Bilirubin AST ALT Alkaline Phosphatase Total Creatine Kinase 1886 H D CK-MB (CK-2) 123.1 H D CK and CKMB Interp 6.5 Troponin I 187.000 H D Total Protein Albumin Globulin Albumin/Globulin Ratio Urine Color Urine Appearance Urine pH Ur Specific [place] Urine Protein Urine Glucose (UA) Urine Ketones Urine Blood Urine Nitrate Urine Bilirubin Urine Urobilinogen Urine Leukocytes Urine RBC Urine WBC Urine Bacteria Urine Mucus Ur Culture Indicated? 02/01/17 02/01/17 02/02/17 22:33 23:33 03:05 WBC RBC Hgb Hct MCV MCH MCHC RDW Plt Count MPV Neut % (Auto) Lymph % (Auto) [place] % (Auto) Eos % (Auto) Baso % (Auto) Neut # (Auto) Lymph # (Auto) [place] # (Auto) Eos # (Auto) Baso # (Auto) Total Counted Immature Gran % Nucleated RBC % Immature Gran # Segmented Neutrophils Band Neutrophils Lymphocytes Monocytes Nucleated RBCs # Platelet Estimate Giant Platelets Immature Plt Fraction Hypochromasia Poikilocytosis Ovalocytes [place] Cells Morphology Comment ABG pH 7.258 L ABG pCO2 35.0 ABG pO2 26.8 L* ABG HCO3 15.2 L ABG Total CO2 14.9 L ABG O2 Saturation 37.6 L ABG Base Excess -10.7 L FiO2 100.00 Sodium Potassium Chloride Carbon Dioxide Anion Gap BUN Creatinine GFR Calculation BUN/Creatinine Ratio Glucose POC Glucose 195 H Calculated Osmolality Calcium Magnesium Total Bilirubin AST ALT Alkaline Phosphatase Total Creatine Kinase 177 D CK-MB (CK-2) 181.5 H D CK and CKMB Interp 102.5 Troponin I > 200.000 H Total Protein Albumin Globulin Albumin/Globulin Ratio Urine Color Urine Appearance Urine pH Ur Specific [place] Urine Protein Urine Glucose (UA) Urine Ketones Urine Blood Urine Nitrate Urine Bilirubin Urine Urobilinogen Urine Leukocytes Urine RBC Urine WBC Urine Bacteria Urine Mucus Ur Culture Indicated? 02/02/17 02/02/17 02/02/17 03:40 06:26 07:00 WBC RBC Hgb Hct MCV MCH MCHC RDW Plt Count MPV Neut % (Auto) Lymph % (Auto) [place] % (Auto) Eos % (Auto) Baso % (Auto) Neut # (Auto) Lymph # (Auto) [place] # (Auto) Eos # (Auto) Baso # (Auto) Total Counted Immature Gran % Nucleated RBC % Immature Gran # Segmented Neutrophils Band Neutrophils Lymphocytes Monocytes Nucleated RBCs # Platelet Estimate Giant Platelets Immature Plt Fraction Hypochromasia Poikilocytosis Ovalocytes [place] Cells Morphology Comment ABG pH 7.422 ABG pCO2 20.8 L* ABG pO2 450.4 H ABG HCO3 13.2 L ABG Total CO2 13.9 L ABG O2 Saturation 99.4 ABG Base Excess -9.6 L FiO2 Sodium 133 L Potassium 6.5 H* D Chloride 106 Carbon Dioxide 10 L Anion Gap 23.5 H BUN 20 H Creatinine 1.00 GFR Calculation 52 BUN/Creatinine Ratio 20.00 Glucose 444 H POC Glucose Calculated Osmolality 287.4 Calcium 7.5 L Magnesium 2.0 Total Bilirubin AST ALT Alkaline Phosphatase Total Creatine Kinase 2827 H D CK-MB (CK-2) 193.2 H D CK and CKMB Interp 6.8 Troponin I > 200.000 H Total Protein Albumin Globulin Albumin/Globulin Ratio Urine Color Urine Appearance Urine pH Ur Specific [place] Urine Protein Urine Glucose (UA) Urine Ketones Urine Blood Urine Nitrate Urine Bilirubin Urine Urobilinogen Urine Leukocytes Urine RBC Urine WBC Urine Bacteria Urine Mucus Ur Culture Indicated? 02/02/17 02/02/17 02/02/17 07:00 07:00 09:08 WBC 19.0 H D RBC 3.35 L Hgb 9.4 L Hct 28.4 L MCV 84.8 L MCH 28 MCHC 33.1 RDW 13.6 Plt Count 557 H D MPV 10.6 Neut % (Auto) 81.7 H Lymph % (Auto) 8.4 L [place] % (Auto) 6.4 Eos % (Auto) 0.0 Baso % (Auto) 0.2 Neut # (Auto) 15.5 H Lymph # (Auto) 1.6 [place] # (Auto) 1.2 H Eos # (Auto) 0.0 Baso # (Auto) 0.0 Total Counted 100 Immature Gran % 3.3 Nucleated RBC % 0.3 Immature Gran # 0.63 Segmented Neutrophils 80 Band Neutrophils 3 Lymphocytes 9 L Monocytes 8 Nucleated RBCs # 0.05 Platelet Estimate Increased Giant Platelets Few Immature Plt Fraction 0.0 Hypochromasia Slight Poikilocytosis Ovalocytes Slight [place] Cells Slight Morphology Comment ABG pH ABG pCO2 ABG pO2 ABG HCO3 ABG Total CO2 ABG O2 Saturation ABG Base Excess FiO2 Sodium 132 L Potassium 6.2 H* Chloride 103 Carbon Dioxide 12 L Anion Gap 23.2 H BUN 22 H Creatinine 1.10 H GFR Calculation 46 BUN/Creatinine Ratio 20.00 Glucose 468 H POC Glucose 475 H Calculated Osmolality 287.5 Calcium 7.3 L Magnesium Total Bilirubin 0.40 AST 406 H ALT 67 H Alkaline Phosphatase 107 Total Creatine Kinase CK-MB (CK-2) CK and CKMB Interp Troponin I Total Protein 4.3 L Albumin 1.6 L Globulin 2.7 Albumin/Globulin Ratio 0.5 L Urine Color Urine Appearance Urine pH Ur Specific [place] Urine Protein Urine Glucose (UA) Urine Ketones Urine Blood Urine Nitrate Urine Bilirubin Urine Urobilinogen Urine Leukocytes Urine RBC Urine WBC Urine Bacteria Urine Mucus Ur Culture Indicated? Quality Measures - Stroke Symptom Onset Unknown: No
[2017-02-02] MEDS ORDERED: PHENYLEPHRINE DRIP 40 MG/250 ML PREMIX IV SCH (09:30)
[2017-02-02] MEDS ORDERED: AMIODARONE 150 MG/3 ML VIAL ONE (09:33)
[2017-02-02] MEDS ORDERED: CALCIUM CHLORIDE 1,000 MG/10 ML SYRINGE IV ONE ×2 (09:33→09:43)
[2017-02-02] MEDS ORDERED: EPINEPHrine 1 MG/10 ML SYRINGE ONE (09:33)
[2017-02-02] MEDS ORDERED: EPINEPHrine 1 MG/ML VIAL ONE (09:33)
[2017-02-02] MEDS ORDERED: ATROPINE 1 MG/10 ML SYRINGE ONE (09:33)
[2017-02-02] MEDS ORDERED: SODIUM BICARBONATE 50 MEQ/50 ML SYRINGE IV ONE ×3 (09:33→10:48)
--- NOTE | 2017-02-02 09:42 | XRay Report ---
History: Respiratory failure Date: 02/02/2017 Study: Chest x-ray AP portable Comparison exam: 02/01/2017 The endotracheal and nasogastric tubes are in satisfactory position. The cardiomediastinal silhouette and pulmonary vasculature are stable. There is no pneumothorax. There is improved aeration in the lung bases with only minimal strandy subsegmental atelectasis on the current exam. There is no new or worsening infiltrate. There is no significant pleural effusion. Osseous structures are similar. Impression: Improved aeration in the lung bases compared to the previous study. Otherwise stable exam PROCEDURE INTERPRETED AT [facility] DEPARTMENT OF RADIOLOGY Final Report Signed by: Dr. Aura Mai
[2017-02-02] MEDS ORDERED: AMIODARONE INJ 450 MG in DEXTROSE 5% 241 ML IV SCH (10:00)
[2017-02-02 10:36] LABS: ABG Base Excess -24.6 MMOL/L (-2.5-2.5); ABG HCO3 6.9 MMOL/L (20-26); ABG Oxygen Saturation 97.5 % (95-100); ABG PCO2 27.2 MM HG (35-48); ABG TCO2 6.1 MMOL/L (23-27); Glucose Heart Surgery 389 MG/DL (74-106); Hematocrit Heart Surgery 27.2 PERCENT (37-47); Hemoglobin Heart Surgery 8.8 G/DL (12.0-16.0)
[2017-02-02 10:38] LABS: ABG PH 6.956 (7.35-7.45); Potassium Heart/CVR 7.9 MMOL/L (3.5-5.1)
[2017-02-02 10:52] LABS: ABG Base Excess 48.9 MMOL/L (-2.5-2.5); ABG HCO3 73.5 MMOL/L (20-26); ABG Oxygen Saturation 98.5 % (95-100); ABG PCO2 57.8 MM HG (35-48); ABG PH 7.722 (7.35-7.45); ABG PO2 306.5 MM HG (80-95); ABG TCO2 75.2 MMOL/L (23-27)
--- NOTE | 2017-02-02 11:12 | Internal Med Progress Note ---
Exam (Progress Note) - Constitutional Vitals: Period Temp Pulse Resp BP Sys/Cabrales Pulse Ox Last 24 Hr 95.9 F-98.2 F 78-137 12-32 62-133/36-101 80-100 Results - Labs CBC & BMP: 02/02/17 07:00 02/02/17 07:00 Quality Measures - Stroke Symptom Onset Unknown: No
--- NOTE | 2017-02-02 11:32 | Event Note ---
Event note Called back for cardiac arrest at 9:30 AM. Patient is status post anterior infarction with cardiogenic shock with LAD and RCA stents yesterday. Ejection fraction 25%. CPR was started. Patient was shocked for VT. Prolonged CPR. Patient was treated for hyperkalemia with insulin bicarbonate calcium and Kayexalate. Patient received Tommy CPR. Received several amps of epinephrine and bicarbonate. The right groin was prepped and draped in sterile fashion and local anesthesia was achieved with 1% Xylocaine. I placed a femoral arterial line with a 4 [place] sheath and a triple-lumen catheter in the femoral vein. Patient's pH went down to 6.9. ABGs showed that she did have good oxygenation but unfortunately, had metabolic acidosis that could not be reversed. The patient became asystolic and the patient 11:[address] Villalpando and Dr. Albarran and I spoke with the family.
--- NOTE | 2017-02-02 11:54 | Discharge Summary ---
Hospital Course - Hospital Course Hospital Course: Patient 71-year-old white female admitted to the hospital with large bowel obstruction. This was found to be due to a large tumor in her distal sigmoid. She underwent surgery for removal of this tumor but it was too extensive and a diverting colostomy was placed. Patient was doing fairly well postop but on began complaining of chest pain. EKG revealed nonspecific abnormalities and she had a slight elevation of serum troponin. She is certainly at high risk for coronary artery disease. She was seen in consultation by Dr. Riley Gary was taken to the [facility] and found to have rather extensive coronary artery disease. Patient underwent stenting and was found to have a diminished ejection fraction of 25%. Patient was intubated in the [facility] and transported to CCU. Patient's blood pressure continued to decline and she was placed on pressors for blood pressure support. She developed persistent hypotension and had a cardiac arrest during the morning of 02/02/2017. She had ventricular tachycardia that responded to DC cardioversion. She was given IV amiodarone but it was obvious her cardiac output continued to decline. She had irreversible arrest and was pronounced by Dr. Gary. Family was notified of the grim results. Diagnosis - Discharge Diagnosis (1) Colon distention Status: Resolved (2) Pneumatosis coli Status: Resolved (3) Adenocarcinoma of sigmoid colon Status: Acute (4) Non-STEMI (non-ST elevated myocardial infarction) Status: Acute (5) Cardiogenic shock Status: Acute Discharge Plan - Discharge Data Disposition: - Discharge Medications No Action metFORMIN [Glucophage] 1,000 mg PO BID W/MEALS hydroCHLOROthiazide [Hydrochlorothiazide] 25 mg PO DAILY PRN PRN Reason: Edema Aspirin [Ecotrin] 81 mg PO DAILY Timolol Maleate [Timolol 0.5% Oph Soln] 1 drop BOTH EYES BID amLODIPine [Norvasc] 5 mg PO DAILY Valsartan [Diovan] 160 mg PO DAILY Glimepiride [Amaryl] 4 mg PO BID Cyanocobalamin (Vitamin B-12) [Vitamin B-12] 1,000 mcg PO DAILY sitaGLIPtin [Januvia] 100 mg PO DAILY - Follow Up or Referral - Forms/Instructions Exam - Constitutional Vitals: Period Temp Pulse Resp BP Sys/Cabrales Pulse Ox Last 24 Hr 95.9 F-98.2 F 78-137 12-32 62-133/36-101 80-100 Discharge Results Procedures and tests throughout hospitalization: Pending Orders 01/29/17 10:53 Blood Culture Stat 02/01/17 Urine Culture Routine 02/01/17 14:31 CL heart Routine 02/02/17 11:02 ABG [Arterial Blood Gas] Stat 02/02/17 14:00 BMP [Basic Metabolic Panel] Routine 02/03/17 04:00 XR chest 1V portable IN AM Arterial Blood Gas IN AM Basic Metabolic Panel IN AM Comp Blood Count Auto Diff IN AM Comprehensive Metabolic Panel IN AM Magnesium IN AM Troponin,CKMB & Ck Total IN AM 02/04/17 04:00 XR chest 1V portable IN AM Arterial Blood Gas IN AM Basic Metabolic Panel IN AM Comp Blood Count Auto Diff IN AM Magnesium IN AM Labs on day of discharge: Labs from last 24 hours 02/02/17 02/02/17 02/02/17 10:49 10:37 09:08 WBC RBC Hgb Hct MCV MCH MCHC RDW Plt Count MPV Neut % (Auto) Lymph % (Auto) [place] % (Auto) Eos % (Auto) Baso % (Auto) Neut # (Auto) Lymph # (Auto) [place] # (Auto) Eos # (Auto) Baso # (Auto) Total Counted Immature Gran % Nucleated RBC % Immature Gran # Segmented Neutrophils Band Neutrophils Lymphocytes Monocytes Nucleated RBCs # Platelet Estimate Giant Platelets Immature Plt Fraction Hypochromasia Ovalocytes [place] Cells Morphology Comment ABG pH 7.722 H 6.956 L* D ABG pCO2 57.8 H 27.2 L ABG pO2 306.5 H 183.0 H ABG HCO3 73.5 H 6.9 L ABG Total CO2 75.2 H 6.1 L ABG O2 Saturation 98.5 97.5 ABG Base Excess 48.9 H -24.6 L Hemoglobin 8.8 L Hematocrit 27.2 L FiO2 Sodium Potassium 7.9 H* Chloride Carbon Dioxide Anion Gap BUN Creatinine GFR Calculation BUN/Creatinine Ratio Glucose 389 H POC Glucose 475 H Calculated Osmolality Calcium Magnesium Total Bilirubin AST ALT Alkaline Phosphatase Total Creatine Kinase CK-MB (CK-2) CK and CKMB Interp Troponin I Total Protein Albumin Globulin Albumin/Globulin Ratio Urine Color Urine Appearance Urine pH Ur Specific [place] Urine Protein Urine Glucose (UA) Urine Ketones Urine Blood Urine Nitrate Urine Bilirubin Urine Urobilinogen Urine Leukocytes Urine RBC Urine WBC Urine Bacteria Urine Mucus Ur Culture Indicated? 02/02/17 02/02/17 02/02/17 07:00 07:00 07:00 WBC 19.0 H D RBC 3.35 L Hgb 9.4 L Hct 28.4 L MCV 84.8 L MCH 28 MCHC 33.1 RDW 13.6 Plt Count 557 H D MPV 10.6 Neut % (Auto) 81.7 H Lymph % (Auto) 8.4 L [place] % (Auto) 6.4 Eos % (Auto) 0.0 Baso % (Auto) 0.2 Neut # (Auto) 15.5 H Lymph # (Auto) 1.6 [place] # (Auto) 1.2 H Eos # (Auto) 0.0 Baso # (Auto) 0.0 Total Counted 100 Immature Gran % 3.3 Nucleated RBC % 0.3 Immature Gran # 0.63 Segmented Neutrophils 80 Band Neutrophils 3 Lymphocytes 9 L Monocytes 8 Nucleated RBCs # 0.05 Platelet Estimate Increased Giant Platelets Few Immature Plt Fraction 0.0 Hypochromasia Slight Ovalocytes Slight [place] Cells Slight Morphology Comment ABG pH ABG pCO2 ABG pO2 ABG HCO3 ABG Total CO2 ABG O2 Saturation ABG Base Excess Hemoglobin Hematocrit FiO2 Sodium 132 L Potassium 6.2 H* Chloride 103 Carbon Dioxide 12 L Anion Gap 23.2 H BUN 22 H Creatinine 1.10 H GFR Calculation 46 BUN/Creatinine Ratio 20.00 Glucose 468 H POC Glucose Calculated Osmolality 287.5 Calcium 7.3 L Magnesium Total Bilirubin 0.40 AST 406 H ALT 67 H Alkaline Phosphatase 107 Total Creatine Kinase 2827 H D CK-MB (CK-2) 193.2 H D CK and CKMB Interp 6.8 Troponin I > 200.000 H Total Protein 4.3 L Albumin 1.6 L Globulin 2.7 Albumin/Globulin Ratio 0.5 L Urine Color Urine Appearance Urine pH Ur Specific [place] Urine Protein Urine Glucose (UA) Urine Ketones Urine Blood Urine Nitrate Urine Bilirubin Urine Urobilinogen Urine Leukocytes Urine RBC Urine WBC Urine Bacteria Urine Mucus Ur Culture Indicated? 02/02/17 02/02/17 02/02/17 06:26 03:40 03:05 WBC RBC Hgb Hct MCV MCH MCHC RDW Plt Count MPV Neut % (Auto) Lymph % (Auto) [place] % (Auto) Eos % (Auto) Baso % (Auto) Neut # (Auto) Lymph # (Auto) [place] # (Auto) Eos # (Auto) Baso # (Auto) Total Counted Immature Gran % Nucleated RBC % Immature Gran # Segmented Neutrophils Band Neutrophils Lymphocytes Monocytes Nucleated RBCs # Platelet Estimate Giant Platelets Immature Plt Fraction Hypochromasia Ovalocytes [place] Cells Morphology Comment ABG pH 7.422 7.258 L ABG pCO2 20.8 L* 35.0 ABG pO2 450.4 H 26.8 L* ABG HCO3 13.2 L 15.2 L ABG Total CO2 13.9 L 14.9 L ABG O2 Saturation 99.4 37.6 L ABG Base Excess -9.6 L -10.7 L Hemoglobin Hematocrit FiO2 100.00 Sodium 133 L Potassium 6.5 H* D Chloride 106 Carbon Dioxide 10 L Anion Gap 23.5 H BUN 20 H Creatinine 1.00 GFR Calculation 52 BUN/Creatinine Ratio 20.00 Glucose 444 H POC Glucose Calculated Osmolality 287.4 Calcium 7.5 L Magnesium 2.0 Total Bilirubin AST ALT Alkaline Phosphatase Total Creatine Kinase CK-MB (CK-2) CK and CKMB Interp Troponin I Total Protein Albumin Globulin Albumin/Globulin Ratio Urine Color Urine Appearance Urine pH Ur Specific [place] Urine Protein Urine Glucose (UA) Urine Ketones Urine Blood Urine Nitrate Urine Bilirubin Urine Urobilinogen Urine Leukocytes Urine RBC Urine WBC Urine Bacteria Urine Mucus Ur Culture Indicated? 02/01/17 02/01/17 02/01/17 23:33 22:33 19:45 WBC RBC Hgb Hct MCV MCH MCHC RDW Plt Count MPV Neut % (Auto) Lymph % (Auto) [place] % (Auto) Eos % (Auto) Baso % (Auto) Neut # (Auto) Lymph # (Auto) [place] # (Auto) Eos # (Auto) Baso # (Auto) Total Counted Immature Gran % Nucleated RBC % Immature Gran # Segmented Neutrophils Band Neutrophils Lymphocytes Monocytes Nucleated RBCs # Platelet Estimate Giant Platelets Immature Plt Fraction Hypochromasia Ovalocytes [place] Cells Morphology Comment ABG pH ABG pCO2 ABG pO2 ABG HCO3 ABG Total CO2 ABG O2 Saturation ABG Base Excess Hemoglobin Hematocrit FiO2 Sodium Potassium Chloride Carbon Dioxide Anion Gap BUN Creatinine GFR Calculation BUN/Creatinine Ratio Glucose POC Glucose 195 H Calculated Osmolality Calcium Magnesium Total Bilirubin AST ALT Alkaline Phosphatase Total Creatine Kinase 177 D 1886 H D CK-MB (CK-2) 181.5 H D 123.1 H D CK and CKMB Interp 102.5 6.5 Troponin I > 200.000 H 187.000 H D Total Protein Albumin Globulin Albumin/Globulin Ratio Urine Color Urine Appearance Urine pH Ur Specific [place] Urine Protein Urine Glucose (UA) Urine Ketones Urine Blood Urine Nitrate Urine Bilirubin Urine Urobilinogen Urine Leukocytes Urine RBC Urine WBC Urine Bacteria Urine Mucus Ur Culture Indicated? 02/01/17 02/01/17 02/01/17 19:16 15:34 14:36 WBC RBC Hgb Hct MCV MCH MCHC RDW Plt Count MPV Neut % (Auto) Lymph % (Auto) [place] % (Auto) Eos % (Auto) Baso % (Auto) Neut # (Auto) Lymph # (Auto) [place] # (Auto) Eos # (Auto) Baso # (Auto) Total Counted Immature Gran % Nucleated RBC % Immature Gran # Segmented Neutrophils Band Neutrophils Lymphocytes Monocytes Nucleated RBCs # Platelet Estimate Giant Platelets Immature Plt Fraction Hypochromasia Ovalocytes [place] Cells Morphology Comment ABG pH 7.273 L ABG pCO2 33.4 L ABG pO2 57.0 L ABG HCO3 15.9 L ABG Total CO2 14.3 L ABG O2 Saturation 86.3 L ABG Base Excess -10.6 L Hemoglobin Hematocrit FiO2 100.00 Sodium Potassium Chloride Carbon Dioxide Anion Gap BUN Creatinine GFR Calculation BUN/Creatinine Ratio Glucose POC Glucose 311 H Calculated Osmolality Calcium Magnesium Total Bilirubin AST ALT Alkaline Phosphatase Total Creatine Kinase 185 D CK-MB (CK-2) 10.7 H D CK and CKMB Interp 5.8 Troponin I 4.420 H D Total Protein Albumin Globulin Albumin/Globulin Ratio Urine Color Urine Appearance Urine pH Ur Specific [place] Urine Protein Urine Glucose (UA) Urine Ketones Urine Blood Urine Nitrate Urine Bilirubin Urine Urobilinogen Urine Leukocytes Urine RBC Urine WBC Urine Bacteria Urine Mucus Ur Culture Indicated? 02/01/17 02/01/17 02/01/17 14:34 13:50 12:33 WBC RBC Hgb Hct MCV MCH MCHC RDW Plt Count MPV Neut % (Auto) Lymph % (Auto) [place] % (Auto) Eos % (Auto) Baso % (Auto) Neut # (Auto) Lymph # (Auto) [place] # (Auto) Eos # (Auto) Baso # (Auto) Total Counted Immature Gran % Nucleated RBC % Immature Gran # Segmented Neutrophils Band Neutrophils Lymphocytes Monocytes Nucleated RBCs # Platelet Estimate Giant Platelets Immature Plt Fraction Hypochromasia Ovalocytes [place] Cells Morphology Comment ABG pH ABG pCO2 ABG pO2 ABG HCO3 ABG Total CO2 ABG O2 Saturation ABG Base Excess Hemoglobin Hematocrit FiO2 Sodium Potassium Chloride Carbon Dioxide Anion Gap BUN Creatinine GFR Calculation BUN/Creatinine Ratio Glucose POC Glucose 358 H Calculated Osmolality Calcium Magnesium Total Bilirubin AST ALT Alkaline Phosphatase Total Creatine Kinase 116 CK-MB (CK-2) 5.0 H CK and CKMB Interp Troponin I 1.280 H Total Protein Albumin Globulin Albumin/Globulin Ratio Urine Color Yellow Urine Appearance Clear Urine pH 6.0 Ur Specific [place] 1.025 Urine Protein Negative Urine Glucose (UA) >=500 Urine Ketones Negative Urine Blood Negative Urine Nitrate Negative Urine Bilirubin Negative Urine Urobilinogen < 2.0 H Urine Leukocytes Small H Urine RBC 1 Urine WBC 3 Urine Bacteria Occasional Urine Mucus Occasional Ur Culture Indicated? Results to follow 02/01/17 11:57 WBC RBC Hgb Hct MCV MCH MCHC RDW Plt Count MPV Neut % (Auto) Lymph % (Auto) [place] % (Auto) Eos % (Auto) Baso % (Auto) Neut # (Auto) Lymph # (Auto) [place] # (Auto) Eos # (Auto) Baso # (Auto) Total Counted Immature Gran % Nucleated RBC % Immature Gran # Segmented Neutrophils Band Neutrophils Lymphocytes Monocytes Nucleated RBCs # Platelet Estimate Giant Platelets Immature Plt Fraction Hypochromasia Ovalocytes [place] Cells Morphology Comment ABG pH ABG pCO2 ABG pO2 ABG HCO3 ABG Total CO2 ABG O2 Saturation ABG Base Excess Hemoglobin Hematocrit FiO2 Sodium Potassium Chloride Carbon Dioxide Anion Gap BUN Creatinine GFR Calculation BUN/Creatinine Ratio Glucose POC Glucose 368 H Calculated Osmolality Calcium Magnesium Total Bilirubin AST ALT Alkaline Phosphatase Total Creatine Kinase CK-MB (CK-2) CK and CKMB Interp Troponin I Total Protein Albumin Globulin Albumin/Globulin Ratio Urine Color Urine Appearance Urine pH Ur Specific [place] Urine Protein Urine Glucose (UA) Urine Ketones Urine Blood Urine Nitrate Urine Bilirubin Urine Urobilinogen Urine Leukocytes Urine RBC Urine WBC Urine Bacteria Urine Mucus Ur Culture Indicated? Preliminary micro results at discharge 01/29/17 10:53 Blood Culture - Preliminary Blood No growth at 3 days 01/29/17 10:53 Blood Culture - Preliminary Blood No growth at 3 days DS: Provider Date of admission: 01/29/17 09:20 Primary care physician: Dionte Villalpando MD Attending physician on admission: Dionte Villalpando MD Consults: 01/29/17 09:02 Consult to Case Mgmt/Social Srvs [CONS] Routine Reason for Case Mgmt/Social Srvs: Discharge Planning 01/29/17 09:05 Consult to Physician [CONS] Routine Comment: Consulting Provider: Harjinder Mai 01/29/17 09:06 Consult to Physician [CONS] Routine Comment: B3 IS OOT AND WILL BE BACK Consulting Provider: Nilay Fuentes Person Notified: [email or web address] Date Notified: 01/29/17 Time Notified: 10:21 Consult Notification Comment: DR. BEARD JUS BE BACK ON SATURDAY. 01/29/17 10:02 Consult to Pastoral Services [CONS] Routine Comment: Pastoral Screen: Request Director Of Business Development Visit Pastoral Screen Source of Request: Patient 02/01/17 08:42 Consult to Physical Therapy [CONS] Routine Reason for Physical Therapy: Evaluate and Treat 02/01/17 13:37 Consult to Physician [CONS] Routine Comment: Consulting Provider: Cardiology - [facility] Person Notified: [email or web address] Date Notified: 02/01/17 Time Notified: 13:40 02/01/17 18:13 Consult to Cardiac Rehabilitation [CONS] Routine Reason for Cardiac Rehabilitation: Risk Factor Modification Other Consult Comment: Evaluate and recommend 02/01/17 18:15 Consult to Physician [CONS] Routine Comment: ventilator information management manager Provider: Consult to Specialist Group: Pulmonology 02/02/17 05:52 Consult to Anesthesiology [CONS] Routine Consulting Provider: Reason for Anesthesiology: Arterial Line 02/02/17 06:20 Consult to Anesthesiology [CONS] Routine Consulting Provider: Reason for Anesthesiology: Central Line Discharging clinician: Dionte Villalpando MD Expected date of discharge: 02/02/17
[2017-02-02] MEDS: INSULIN LISPRO 100 UNIT/ML SUBCUT SCH ×2 (12:42→12:48)
[2017-02-02] MEDS: DOCUSATE SODIUM 100 MG CAPSULE PO SCH (12:43)
[2017-02-02] MEDS: TICAGRELOR 90 MG TABLET PO SCH (12:43)
[2017-02-02] MEDS: sitaGLIPtin 100 MG TABLET PO SCH (12:43)
[2017-02-02] MEDS: ENOXAPARIN 40 MG/0.4 ML SYRINGE SUBCUT SCH (12:44)
[2017-02-02] MEDS: PANTOPRAZOLE 40 MG VIAL IV SCH (12:44)
[2017-02-02] MEDS: LEVOFLOXACIN INJ 500 MG in PREMIX 1 EACH IV SCH (12:44)
[2017-02-02] MEDS: NITROGLYCERIN 2% OINT 1 INCH/GM PACK TOP SCH (12:44)
[2017-02-02] MEDS: CYANOCOBALAMIN 500 MCG TABLET PO SCH (12:45)
[2017-02-02 13:28] VITALS: BP 44/31
--- NOTE | 2017-02-02 14:02 | Pulmonology Progress Note ---
Pulmonary - PN: Subj Interval history: This is a 71-year-old white female. I saw in pulmonary consultation 02/01/2017. My impressions were. 1. Acute myocardial infarction requiring multiple stents. Extensive three- vessel coronary artery disease. 2. Recent colon obstruction secondary to colon cancer with metastatic disease 3. Diabetes mellitus 4. High blood pressure 5. Post cardiac cath hypoxemia. 6. Anemia Plan. 1. Ventilator adjustments made. 2. Weaning protocol. 3. Physical therapy protocol 4. As per cardiology. Case discussed with Dr. Gernoimo shannon. We have coordinated care 02/02/2017. Patient looks much better today. She is beginning to wake up. She is not able to cooperate much yet. Her chest x-ray shows heart to be in the upper range of normal size. There is slight prominence of the central vasculature. There is a small area of curvilinear atelectasis in the medial right lower lung field. No heart failure no infiltrates and no masses. Endotracheal tube is in good position. I saw the patient around 8:00 this morning. Chest is fairly clear. Heart revealed a lateral PMI. Abdomen was slightly distended. There were only rare bowel sounds. Neck is symmetrical with no meningismus. [place] her condition was guarded but improved. Since that time the patient had a cardiac arrest. Dr. Gary was present. Patient could not be saved and . Exam (Progress Note) - Constitutional Vitals: Period Temp Pulse Resp BP Sys/Cabrales Pulse Ox Last 24 Hr 95.9 F-98.2 F 78-142 12-32 31-133/25-101 80-100 Results - Labs CBC & BMP: 02/02/17 07:00 02/02/17 07:00
--- NOTE | 2017-02-02 14:41 | Order Completion Report ---
See report scanned to EMR
[2017-02-02] MEDS ORDERED: INSULIN LISPRO 100 UNIT/ML SUBCUT SCH (17:00)
--- NOTE | 2017-02-04 11:08 | Physician Query Form ---
CLICK EDIT DOCUMENT TO SELECT QUERY ANSWER --> OK --> SIGN Susan Alexandra RN Clinical Carbon Paper Machine Operator W) [phone] (f) [phone] [email or web address] PROVIDERS: Make your selection(s) from the choices in EACH section by typing an "x" and enter comments in the comment section. Please use your independent medical judgment in providing your response. This request does not imply that any particular answer is desired or expected. CLINICAL INDICATORS: (Providers should not edit this section) Based on documentation of "Patient was intubated in the Information Technology Instructor and transported to CCU" and "Post cardiac cath hypoxemia". O2 sat of 80%. If possible, please further clarify the type and acuity of respiratory diagnosis : ACUITY: ( X) Acute ( ) Chronic ( ) Acute on Chronic TYPE: (X ) Respiratory failure with hypoxia ( ) Respiratory failure with hypercapnia ( ) Respiratory Arrest ( ) ARDS (Adult/Acute Respiratory Distress Syndrome) ( ) Other, please specify: ( ) Clinically unable to determine Recognized criteria for respiratory failure PH <7.35 or >7.45 PO2 <60 PCO2 >50 RR >24 O2 Sat <90% on RA or <95% on O2 Use of accessory muscles Unable to speak in full sentences Intubation is not required COMMENTS: PLEASE ALSO DOCUMENT RESPONSE IN PROGRESS NOTES AND/OR DISCHARGE SUMMARY Use of terms such as suspected, likely, or probable (associated with a specific diagnosis that is being evaluated, monitored, or treated as if it exists) are acceptable and can be restated in the discharge summary if not ruled out. MTDD
== END 2017-02-02 11:06 | disposition expired | DRG 329 ==
LOC: N.2E 09:20 → N.CC 02-01 14:53
PROVIDERS: ADMIT Family Medicine; ATTEND Family Medicine
PROC: CLCCHCL (ICD-10-PCS; 2017-02-01 16:45)